=== PATIENT | female | born 1965 | race Caucasian/White ===

== ENCOUNTER 2017-11-07 14:35 | Emergency (ER) | payer MEDICARE, OTHER, SELFPAY | END 2017-11-07 17:46 | disposition home or self-care (01) | PROVIDERS: Emergency Provider Emergency Medicine; Family Provider Emergency Medicine; Visit Provider Emergency Medicine | DX: L03.116 Cellulitis of left lower limb (principal); F17.210 Nicotine dependence, cigarettes, uncomplicated; Z96.652 Presence of left artificial knee joint; Z90.710 Acquired absence of both cervix and uterus; G35 Multiple sclerosis; F41.9 Anxiety disorder, unspecified; Z79.01 Long term (current) use of anticoagulants; Z79.891 Long term (current) use of opiate analgesic; Z79.899 Other long term (current) drug therapy; Z88.8 Allergy status to other drugs, medicaments and biological substances; Z91.048 Other nonmedicinal substance allergy status | CPT/HCPCS: 73630; 80053; 83605; 85025; 87040; 93005; 96374; 96375; 99284; J2405 ==

== ENCOUNTER 2017-11-22 12:19 | Emergency (ER) | payer MEDICARE, OTHER, SELFPAY ==
[2017-11-22 12:35] VITALS: BP 131/86; PULSE 80; RESP 22; TEMP 36.7; O2SAT 98; BMI 30.9
--- NOTE | 2017-11-22 13:12 | HMH.EDGENADL ---
ED Disposition Clinical Impression: Abscess of external ear Qualifiers: Laterality: left Qualified Code(s): H60.02 - Abscess of left external ear Cellulitis of ear Qualifiers: Laterality: left Qualified Code(s): H60.12 - Cellulitis of left external ear Disposition: Xfer Short-Term Hosp Condition on Discharge: Good Referrals: Navneet Roberto MD [Primary Care Provider] - - Critical Care Critical Care Time: No Attestation: On 11/22/17, the high probability of a clinically significant, sudden or life threatening deterioration of the following system(s) required my full and direct attention, intervention and personal management. The time I documented below is in addition to time spent performing reported procedures but includes the following listed in this critical care notation. Medical Decision Making Vital Signs: 11/22/17 12:35 Temperature 98.1 F Temperature Source Oral Pulse Rate [Left Brachial] 80 Respiratory Rate 22 Blood Pressure [Left Arm] 131/86 Blood Pressure Mean [Left Arm] 101 Blood Pressure Source [Left Arm] Automatic Cuff Blood Pressure Position [Left Arm] Sitting 02 Sat by Pulse Oximetry 98 Oxygen Delivery Method Room Air - Lab Data Lab Results 11/22/17 13:50: WBC 10.2, RBC 4.65, Hgb 13.4, Hct 41.1, MCV 88.4, MCH 28.8, MCHC 32.6, RDW 13.7, Plt Count 212, MPV 8.6, Neut % (Auto) 82.4 H, Lymph % (Auto) 9.7 L, [place] % (Auto) 6.6, Eos % (Auto) 1.1, Baso % (Auto) 0.2, Neut # (Auto) 8.4 H, Lymph # (Auto) 1.0, [place] # (Auto) 0.7, Eos # (Auto) 0.1, Baso # (Auto) 0.0 11/22/17 13:50: Sodium 140, Potassium 3.2 L, Chloride 102, Carbon Dioxide 30, Anion Gap 11.2, BUN 13, Creatinine 0.60, Estimated Creat Clear 145, Estimated GFR > 60, Est GFR ( Amer) > 60, Glucose 95 11/22/17 13:50: Lactic Acid 0.6 Result diagrams: 11/22/17 13:50 11/22/17 13:50 Orders (Tests/Meds): ED MEDICATIONS Generic Name Dose Route Start Last Admin Trade Name Freq PRN Reason Stop Dose Admin Vancomycin HCl 1,750 mg/ 250 mls @ 125 mls/hr 11/22/17 14:15 11/22/17 14:29 Sodium Chloride IV 11/22/17 16:14 125 mls/hr ONCE ONE Administration Sodium Chloride 10 ml 11/22/17 13:03 Saline Flush 10ml Syringe IV 12/22/17 13:02 NEEDED PRN Maintain IV Site Discontinued Medications Generic Name Dose Route Start Last Admin Trade Name Freq PRN Reason Stop Dose Admin Hydromorphone HCl 1 mg 11/22/17 13:02 11/22/17 13:59 Dilaudid 2mg/Ml Syringe IV 11/22/17 13:03 1 mg ONCE ONE Administration Miscellaneous 1 each 11/22/17 13:02 Vancomycin Consult Request NOTAPPLIC 11/22/17 13:03 CONSULT PHARMACY ONE Ondansetron HCl 4 mg 11/22/17 13:02 11/22/17 13:59 Zofran 4mg/2ml Vial IV 11/22/17 13:03 4 mg ONCE ONE Administration - Nakul Inquiry Pt receiving controlled substance: Yes Nakul was queried for this patient: No Reason not queried -: Emergent pt cond-no time Risks and benefits of using a controlled substance: were not discussed with pt by me Medical Decision Making Narrative: 1:00 PM: Case discussed with Tremayne Rodríguez, for Dr. Roberto. She has contacted Dr. Alvarado, who is out of town. She says that she feels the patient will most likely need to be transferred for treatment and surgery, but will contact general surgery first and have them see the patient emergency department to see if they will manage the case. 1:50 PM: Dr. Blanchard's office states he will not see the patient in the emergency department, patient requires ENT treatment. Called [facility] emergency department, spoke with Dr. Lucero. They are on diversion with [address] in the emergency department. We also called to see if there were other ENT physicians that could consult on her here and all are out of town or unavailable. 2:45 PM: Discussed with Dr. Kraft, ENT airline reservationist at [facility]. He accepts the patient to the emergency department. General Adult HPI - Genera
--- NOTE | 2017-11-22 13:15 | ED_ITS ---
ED Disposition Clinical Impression: Abscess of external ear Qualifiers: Laterality: left Qualified Code(s): H60.02 - Abscess of left external ear Cellulitis of ear Qualifiers: Laterality: left Qualified Code(s): H60.12 - Cellulitis of left external ear Disposition: Xfer Short-Term Hosp Condition on Discharge: Good Referrals: Navneet Roberto MD [Primary Care Provider] - - Critical Care Critical Care Time: No Attestation: On 11/22/17, the high probability of a clinically significant, sudden or life threatening deterioration of the following system(s) required my full and direct attention, intervention and personal management. The time I documented below is in addition to time spent performing reported procedures but includes the following listed in this critical care notation. Medical Decision Making Vital Signs: 11/22/17 12:35 Temperature 98.1 F Temperature Source Oral Pulse Rate [Left Brachial] 80 Respiratory Rate 22 Blood Pressure [Left Arm] 131/86 Blood Pressure Mean [Left Arm] 101 Blood Pressure Source [Left Arm] Automatic Cuff Blood Pressure Position [Left Arm] Sitting 02 Sat by Pulse Oximetry 98 Oxygen Delivery Method Room Air - Lab Data Lab Results 11/22/17 13:50: WBC 10.2, RBC 4.65, Hgb 13.4, Hct 41.1, MCV 88.4, MCH 28.8, MCHC 32.6, RDW 13.7, Plt Count 212, MPV 8.6, Neut % (Auto) 82.4 H, Lymph % (Auto ) 9.7 L, [place] % (Auto) 6.6, Eos % (Auto) 1.1, Baso % (Auto) 0.2, Neut # (Auto) 8.4 H, Lymph # (Auto) 1.0, [place] # (Auto) 0.7, Eos # (Auto) 0.1, Baso # (Auto) 0.0 11/22/17 13:50: Sodium 140, Potassium 3.2 L, Chloride 102, Carbon Dioxide 30, Anion Gap 11.2, BUN 13, Creatinine 0.60, Estimated Creat Clear 145, Estimated GFR > 60, Est GFR ( Amer) > 60, Glucose 95 11/22/17 13:50: Lactic Acid 0.6 Result diagrams: 11/22/17 13:50 11/22/17 13:50 Orders (Tests/Meds): ED MEDICATIONS Generic Name Dose Route Start Last Admin Trade Name Freq PRN Reason Stop Dose Admin Vancomycin HCl 1,750 mg/ 250 mls @ 125 mls/hr 11/22/17 14:15 11/22/17 14:29 Sodium Chloride IV 11/22/17 16:14 125 mls/hr ONCE ONE Administration Sodium Chloride 10 ml 11/22/17 13:03 Saline Flush 10ml Syringe IV 12/22/17 13:02 NEEDED PRN Maintain IV Site Discontinued Medications Generic Name Dose Route Start Last Admin Trade Name Freq PRN Reason Stop Dose Admin Hydromorphone HCl 1 mg 11/22/17 13:02 11/22/17 13:59 Dilaudid 2mg/Ml Syringe IV 11/22/17 13:03 1 mg ONCE ONE Administration Miscellaneous 1 each 11/22/17 13:02 Vancomycin Consult Request NOTAPPLIC 11/22/17 13:03 CONSULT PHARMACY ONE Ondansetron HCl 4 mg 11/22/17 13:02 11/22/17 13:59 Zofran 4mg/2ml Vial IV 11/22/17 13:03 4 mg ONCE ONE Administration - Nakul Inquiry Pt receiving controlled substance: Yes Nakul was queried for this patient: No Reason not queried -: Emergent pt cond-no time Risks and benefits of using a controlled substance: were not discussed with pt by me Medical Decision Making Narrative: 1:00 PM: Case discussed with Tremayne Rodríguez, for Dr. Roberto. She has contacted Dr. Alvarado, who is out of town. She says that she feels the patient will most likely need to be transferred for treatment and surgery, but will contact
--- NOTE | 2017-11-22 13:42 | PC.NURSE ---
SHANE FROM DR RAMSEY'S OFFICE CALLED AND ADVISED THAT PT NEEDS TO SEE ENT AND NOT SURGERY. DR RAMSEY WILL NOT BE COMING DOWN TO ED TO ASSESS PT.
--- NOTE | 2017-11-22 13:47 | PC.NURSE ---
CALLING [facility] AT THIS TIME TO POSSIBLY ARRANGE PT TRANSFER.
--- NOTE | 2017-11-22 13:50 | PC.NURSE ---
SPEAKING WITH DR. LEDESMA IN [facility]
--- NOTE | 2017-11-22 13:51 | PC.NURSE ---
DR LEDESMA ADVISED THAT THEY ARE ON DIVERSION
--- NOTE | 2017-11-22 13:58 | PC.NURSE ---
CALLED [facility] AND DR. LILI BOYD IS SUPPOSED TO BE RETURNING OUR CALL REGARDING PT TRANSFER.
[2017-11-22 14:08] LABS: Basophils % 0.2 % (0.1-2.0); Eosinophils # 0.1 K/mm3 (0.0-0.4); Eosinophils % 1.1 % (0.1-12.0); Hematocrit 41.1 % (37.0-47.0); Hemoglobin 13.4 g/dL (12.2-16.2); Lymphocytes % 9.7 K/mm3 (10-50); Mean Corpuscular HGB Conc 32.6 g/dL (31.8-35.4); Mean Corpuscular Hemoglobin 28.8 pg (27.0-31.2); Mean Corpuscular Volume 88.4 fl (81-99); Mean Platelet Volume 8.6 fl (7.4-10.4); Monocytes # 0.7 K/mm3 (0.1-1.0); Monocytes % 6.6 % (1.7-9.3); Neutrophils # 8.4 K/mm3 (1.8-7.8); Neutrophils % 82.4 % (37.0-80.0); Platelet Count 212 K/mm3 (142-424); Red Blood Count 4.65 M/mm3 (4.20-5.40); Red Cell Distribution Width 13.7 % (11.5-17.5); White Blood Count 10.2 K/mm3 (4.8-10.8)
--- NOTE | 2017-11-22 14:08 | PC.NURSE ---
CALLED PHARMACY AND SPOKE WITH NATHANIEL REGARDING [facility] CONSULT
--- NOTE | 2017-11-22 14:14 | PC.NURSE ---
SPEAKING WITH DR. BOYD AT [facility].
[2017-11-22 14:15] LABS: Anion Gap 11.2 mEq/L (5-15); Blood Urea Nitrogen 13 mg/dL (7-18); Carbon Dioxide 30 mmol/L (21.0-32.0); Chloride 102 mmol/L (98-107); Creatinine Clearance Estimated 145 mg/ml (0-300); Estimated Glomerular Filt Rate > 60 ml/min (>60); GFR (African American) > 60 ML/MIN (>60); Glucose 95 mg/dL (74-106); Potassium 3.2 mmoL/L (3.5-5.1); Sodium 140 mmol/L (136-145)
[2017-11-22 14:24] LABS: Lactic Acid 0.6 mmol/L (0.4-2.0)
--- NOTE | 2017-11-22 14:54 | PC.NURSE ---
PT HAS BEEN ACCEPTED TO [facility] BY DR. CAR.
--- NOTE | 2017-11-22 15:58 | PC.NURSE ---
pt does not want to be transported to by em[facility] , she has her boyfriend coming to pick her up
[2017-11-22 17:01] VITALS: BP 134/92; PULSE 75; RESP 22; TEMP 37.1; O2SAT 100
== END 2017-11-22 17:09 | disposition short-term general hospital (02) ==
PROVIDERS: Emergency Provider Emergency Medicine; Family Provider Emergency Medicine; PCP Emergency Medicine
DX: H60.02 Abscess of left external ear (principal); H60.12 Cellulitis of left external ear; Z87.891 Personal history of nicotine dependence
CPT/HCPCS: 80048; 83605; 85025; 96374; 96375; 99283; J2405; J3370

== ENCOUNTER 2018-02-01 00:11 | Observation (INO) | payer MEDICARE, OTHER, SELFPAY ==
[2018-02-01] VITALS (7 sets, daily range): BP systolic 99–157; BP diastolic 57–96; PULSE 59–89; RESP 16–20; TEMP 36.4–37; O2SAT 96–99; BMI 29.9
--- NOTE | 2018-02-01 00:19 | XR_ITS ---
XR chest 2V HISTORY: ITS.REASON: chest pressure ORDERING PHYSICIAN: Navneet Roberto MD PATIENT AGE: 52 years COMPARISON: 10/31/2017 FINDINGS: The cardiomediastinal silhouette and pulmonary vascularity are within normal limits. The lungs are clear without infiltrates, suspicious nodules, or pleural effusions. There is a calcified granuloma in the right lung base posteriorly No acute bony abnormalities. IMPRESSION: Negative chest, no acute finding
[2018-02-01 00:36] LABS: Basophils % 0.3 % (0.1-2.0); Eosinophils # 0.2 K/mm3 (0.0-0.4); Eosinophils % 2.8 % (0.1-12.0); Hematocrit 42.2 % (37.0-47.0); Hemoglobin 13.9 g/dL (12.2-16.2); Lymphocytes # 1.4 K/mm3 (0.7-4.5); Lymphocytes % 24.5 K/mm3 (10-50); Mean Corpuscular Hemoglobin 29.6 pg (27.0-31.2); Mean Corpuscular Volume 89.7 fl (81-99); Mean Platelet Volume 8.4 fl (7.4-10.4); Monocytes # 0.5 K/mm3 (0.1-1.0); Monocytes % 8.7 % (1.7-9.3); Neutrophils # 3.7 K/mm3 (1.8-7.8); Neutrophils % 63.6 % (37.0-80.0); Platelet Count 227 K/mm3 (142-424); Red Blood Count 4.71 M/mm3 (4.20-5.40); Red Cell Distribution Width 13.6 % (11.5-17.5); White Blood Count 5.8 K/mm3 (4.8-10.8)
[2018-02-01 00:55] LABS: INR 1.03 (0.9-1.1); Prothrombin Time 11.1 seconds (9.4-11.8)
[2018-02-01 01:05] LABS: Activated Partial Thrombo Time 55.6 seconds (23.6-34.0)
--- NOTE | 2018-02-01 01:05 | PC.NURSE ---
critical PTT 55.[address] Roberto
[2018-02-01 01:10] LABS: Alanine Aminotransferase 42 U/L (12-78); Albumin Level 3.8 gm/dL (3.4-5.0); Albumin/Globulin Ratio 1.2 (1.1-1.8); Alkaline Phosphatase 101 U/L (46-116); Anion Gap 14.4 mEq/L (5-15); Aspartate Amino Transferase 33 U/L (15-37); Bilirubin,Total 0.2 mg/dL (0.2-1.0); Blood Urea Nitrogen 13 mg/dL (7-18); CKMB Relative Index 1.3 U/L (0-4.0); Calcium 9.1 mg/dL (8.5-10.1); Carbon Dioxide 28 mmol/L (21.0-32.0); Chloride 104 mmol/L (98-107); Creatine Kinase 48 U/L (26-192); Creatine Kinase MB 0.6 mg/ml (0.0-3.6); Creatinine Clearance Estimated 122 mL/min (0-300); Creatinine,Serum 0.71 mg/dL (0.55-1.02); Estimated Glomerular Filt Rate 87 ml/min (>60); GFR (African American) 105 ML/MIN (>60); Globulin 3.2 gm/dl (1.3-3.2); Glucose 99 mg/dL (74-106); Potassium 4.4 mmoL/L (3.5-5.1); Sodium 142 mmol/L (136-145); Troponin I < 0.02 ng/ml (0.00-0.06)
--- NOTE | 2018-02-01 01:51 | HMH.EDCP ---
ED Disposition Clinical Impression: Peripheral vascular disease Chest pain Qualifiers: Chest pain type: precordial pain Qualified Code(s): R07.2 - Precordial pain Disposition: Admitted as Observation Condition on Discharge: Good - Critical Care Critical Care Time: No Attestation: On 02/01/18, the high probability of a clinically significant, sudden or life threatening deterioration of the following system(s) required my full and direct attention, intervention and personal management. The time I documented below is in addition to time spent performing reported procedures but includes the following listed in this critical care notation. Medical Decision Making - Medical Records Medical records reviewed: Yes: I reviewed the patient's medical records. - Nakul Inquiry Pt receiving controlled substance: No Vital Signs: 02/01/18 00:12 02/01/18 01:18 02/01/18 02:20 Temperature 98.2 F 98.4 F Temperature Source Oral Oral Pulse Rate 70 Pulse Rate [Right Brachial] 81 89 Respiratory Rate 18 16 16 Blood Pressure 138/79 Blood Pressure [Right Arm] 157/85 135/96 Blood Pressure Mean [Right Arm] 109 109 Blood Pressure Source Automatic Cuff Blood Pressure Source [Right Arm] Automatic Cuff Automatic Cuff Blood Pressure Position Supine Blood Pressure Position [Right Arm] Sitting Sitting 02 Sat by Pulse Oximetry 97 97 Oxygen Delivery Method Room Air Room Air Room Air - Lab Data Lab results reviewed: Yes: I reviewed the patient's lab results. Lab Results 02/01/18 00:20: WBC 5.8, RBC 4.71, Hgb 13.9, Hct 42.2, MCV 89.7, MCH 29.6, MCHC 33.0, RDW 13.6, Plt Count 227, MPV 8.4, Neut % (Auto) 63.6, Lymph % (Auto) 24.5, [place] % (Auto) 8.7, Eos % (Auto) 2.8, Baso % (Auto) 0.3, Neut # (Auto) 3.7, Lymph # (Auto) 1.4, [place] # (Auto) 0.5, Eos # (Auto) 0.2, Baso # (Auto) 0.0 02/01/18 00:20: Sodium 142, Potassium 4.4, Chloride 104, Carbon Dioxide 28, Anion Gap 14.4, BUN 13, Creatinine 0.71, Estimated Creat Clear 122, Estimated GFR 87, Est GFR ( Amer) 105, Glucose 99, Calcium 9.1, Total Bilirubin 0.2, AST 33, ALT 42, Alkaline Phosphatase 101, Total Creatine Kinase 48, CK-MB (CK-2) 0.6, CK-MB (CK-2) Rel Index 1.3, Troponin I < 0.02, Total Protein 7.0, Albumin 3.8, Globulin 3.2, Albumin/Globulin Ratio 1.2 02/01/18 00:20: PT 11.1, INR 1.03, APTT 55.6 H* Result diagrams: 02/01/18 00:20 02/01/18 00:20 Orders (Tests/Meds): ED MEDICATIONS Discontinued Medications Generic Name Dose Route Start Last Admin Trade Name Freq PRN Reason Stop Dose Admin Aspirin 324 mg 02/01/18 02:01 02/01/18 02:05 Aspirin 81mg Chewable Tablet PO 02/01/18 02:02 324 mg ONCE ONE Administration ORDERS Category Date Time Status Chest XR 2 view (NOT portable) [XR chest 2V] Stat Exams 02/01/18 00:19 Taken ECG Request by /Jesus Stat Y 02/01/18 00:19 Ordered - Radiology Data #1 Image(s): Chest Image Reviewed: Yes I reviewed the patient's radiology image Preliminary Findings: Normal/NAD - ECG Data Tracing #1 I reviewed this ECG and interpreted as documented below: Normal Sinus Rhythm: Yes Ischemic changes: non-specific ST-T wave changes Chest Pain HPI - General Chief Complaint: Chest Pain Stated Complaint: chest pressure Time Seen by Provider: 02/01/18 01:51 Mode of Arrival: Ambulatory Source of Information: Patient, Medical Record Limitations: walks with a cane Description of Symptoms (Recalled from ER Triage Doc. by RN): reports chest heaviness, with accompanied sob and dizziness - History of Present Illness HPI narrative: pt with episodes of chest pain which is pressure over the last few days MD complaint: chest pain indicative of cardiac Onset (ago): day(s) Duration: intermittent, now resolved Activity at onset: during rest Pain location: substernal Severity: moderate Quality: tightness Pain radiation: neck Risk Factors for CAD: Family Hx of CAD Treatments prior to or on arrival
--- NOTE | 2018-02-01 02:04 | ED_ITS ---
ED Disposition Clinical Impression: Peripheral vascular disease Chest pain Qualifiers: Chest pain type: precordial pain Qualified Code(s): R07.2 - Precordial pain Disposition: Admitted as Observation Condition on Discharge: Good - Critical Care Critical Care Time: No Attestation: On 02/01/18, the high probability of a clinically significant, sudden or life threatening deterioration of the following system(s) required my full and direct attention, intervention and personal management. The time I documented below is in addition to time spent performing reported procedures but includes the following listed in this critical care notation. Medical Decision Making - Medical Records Medical records reviewed: Yes: I reviewed the patient's medical records. - Nakul Inquiry Pt receiving controlled substance: No Vital Signs: 02/01/18 00:12 02/01/18 01:18 02/01/18 02:20 Temperature 98.2 F 98.4 F Temperature Source Oral Oral Pulse Rate 70 Pulse Rate [Right Brachial] 81 89 Respiratory Rate 18 16 16 Blood Pressure 138/79 Blood Pressure [Right Arm] 157/85 135/96 Blood Pressure Mean [Right Arm] 109 109 Blood Pressure Source Automatic Cuff Blood Pressure Source [Right Arm] Automatic Cuff Automatic Cuff Blood Pressure Position Supine Blood Pressure Position [Right Arm] Sitting Sitting 02 Sat by Pulse Oximetry 97 97 Oxygen Delivery Method Room Air Room Air Room Air - Lab Data Lab results reviewed: Yes: I reviewed the patient's lab results. Lab Results 02/01/18 00:20: WBC 5.8, RBC 4.71, Hgb 13.9, Hct 42.2, MCV 89.7, MCH 29.6, MCHC 33.0, RDW 13.6, Plt Count 227, MPV 8.4, Neut % (Auto) 63.6, Lymph % (Auto) 24.5 , [place] % (Auto) 8.7, Eos % (Auto) 2.8, Baso % (Auto) 0.3, Neut # (Auto) 3.7, Lymph # (Auto) 1.4, [place] # (Auto) 0.5, Eos # (Auto) 0.2, Baso # (Auto) 0.0 02/01/18 00:20: Sodium 142, Potassium 4.4, Chloride 104, Carbon Dioxide 28, Anion Gap 14.4, BUN 13, Creatinine 0.71, Estimated Creat Clear 122, Estimated GFR 87, Est GFR ( Amer) 105, Glucose 99, Calcium 9.1, Total Bilirubin 0.2 , AST 33, ALT 42, Alkaline Phosphatase 101, Total Creatine Kinase 48, CK-MB (CK- 2) 0.6, CK-MB (CK-2) Rel Index 1.3, Troponin I < 0.02, Total Protein 7.0, Albumin 3.8, Globulin 3.2, Albumin/Globulin Ratio 1.2 02/01/18 00:20: PT 11.1, INR 1.03, APTT 55.6 H* Result diagrams: 02/01/18 00:20 02/01/18 00:20 Orders (Tests/Meds): ED MEDICATIONS Discontinued Medications Generic Name Dose Route Start Last Admin Trade Name Freq PRN Reason Stop Dose Admin Aspirin 324 mg 02/01/18 02:01 02/01/18 02:05 Aspirin 81mg Chewable Tablet PO 02/01/18 02:02 324 mg ONCE ONE Administration ORDERS Category Date Time Status Chest XR 2 view (NOT portable) [XR chest 2V] Stat Exams 02/01/18 00:19 Taken ECG Request by /Jesus Stat Y 02/01/18 00:19 Ordered - Radiology Data #1 Image(s): Chest Image Reviewed: Yes I reviewed the patient's radiology image Preliminary Findings: Normal/NAD - ECG Data Tracing #1 I reviewed this ECG and interpreted as documented below: Normal Sinus Rhythm: Yes Ischemic changes: non-specific ST-T wave changes Chest Pain HPI - General Chief Complaint: Chest Pain Stated Complaint: chest pressure Time Seen by Provider: 02/01/18 01:51
--- NOTE | 2018-02-01 06:11 | CA_ITS ---
PROCEDURE: 2-D M-mode and color Doppler study INDICATIONS FOR THE TEST: Chest pain COPD+ Heart Murmur Tobacco Smoking Palpitations Fatigue Syncope Edema Hypertension+Diabetes Mellitus Rheumatic Fever SOB GARCIA Obesity Hyperlipidemia+ Family History HD Additional History PAD PATIENT INFORMATION HEIGHT: 64 WEIGHT:182 GENDER: Female B/P:138/68 2-D/M-MODE INTERPRETATION: 2-D MEASUREMENTS OBSERVED VALUES IN CMS Right Ventricular Dimension (RVDd) 2.1 Interventricular Septum (Thickness)(IVsd) 1.4 Left Ventricular Internal Dimensions(LVIDd) 4.8 Left Ventricular Posterior Wall (Thickness)(LVPWd) 0.8 Aortic Root 3.3 Aortic Cusp Separation 2.0 Left Atrial Dimensions (LAD) 3.7 2D 1. Left atrium is mildly enlarged, left ventricle is normal size, mild concentric left ventricular hypertrophy, visually estimated ejection fraction 55% with no obvious regional wall motion abnormality. 2. The right atrium and right ventricle are normal size and contractility. 3. The aortic valve is minimally thickened and fibrosed. 4. The mitral and tricuspid valvular grossly normal. 5. The pulmonic valve is poorly visualized. 6. No significant pericardial effusion noted. DOPPLER INTERROGATION: Doppler interrogation of the aortic, mitral and tricuspid valvular presence of mild mitral and tricuspid regurgitation, tricuspid and jet velocity insufficient for calculation of the right ventricular systolic pressure, grade 1 diastolic dysfunction seen without tissue Doppler evidence of raised left atrial pressure. CONCLUSION: 1. Mildly enlarged left atrium, normal left ventricular size, mild concentric left ventricular hypertrophy, visually estimated ejection fraction 55% with no obvious regional wall motion abnormality, grade 1 diastolic dysfunction seen without tissue Doppler evidence of raised left atrial pressure. 2. Mild mitral and tricuspid regurgitation 3. No significant pericardial effusion noted.
--- NOTE | 2018-02-01 07:23 | P.CONPHA_ITS ---
[facility] Pharmacy VTE Monitoring - Patient Demographics Admission date: 02/01/18 Report Date: 02/01/18 Time: 07:23 Allergies/Adverse Reactions: Patient Allergies teriflunomide [From [facility]] Allergy (Unknown, Verified 11/22/17 13:56) ELVATED LIVER ENZYMES PAPER TAPE Allergy (Unknown, Uncoded 11/07/17 15:16) Height: 1.65 m Weight: 81.703 kg Patient Problems: Current Active Problems Chest pain (Acute) Peripheral vascular disease (Chronic) - VTE Risk Labs: VTE Related Lab Results Hgb 13.9 g/dL (12.2-16.2) 02/01/18 00:20 Hct 42.2 % (37.0-47.0) 02/01/18 00:20 Plt Count 227 K/mm3 (142-424) 02/01/18 00:20 PT 11.1 seconds (9.4-11.8) 02/01/18 00:20 INR 1.03 (0.9-1.1) 02/01/18 00:20 APTT 55.6 seconds (23.6-34.0) H* 02/01/18 00:20 BUN 13 mg/dL (7-18) 02/01/18 00:20 Creatinine 0.71 mg/dL (0.55-1.02) 02/01/18 00:20 Estimated Creat Clear 122 mL/min (0-300) 02/01/18 00:20 Was VTE Risk Assessment Performed: Yes VTE Score: 2 VTE Risk Level: Low Risk - Prophylaxis VTE Prophylaxis Ordered?: Yes Types of VTE Prophylaxis: TEDS Knee High Location of Applied Device: Bilateral Lower Extremeties - VTE Diagnosis Confirmed Treatment or plan recommended: Continue Current Treatment
--- NOTE | 2018-02-01 07:27 | PC.NURSE ---
report given to tyree montoya rn
[2018-02-01 07:44] LABS: Troponin I < 0.02 ng/ml (0.00-0.06)
--- NOTE | 2018-02-01 08:00 | HMH.CNCARD ---
History of Present Illness Consult date: 02/01/18 Requesting physician: Navneet Roberto Consult reason: chest pain Chief complaint: chest pressure Additional Medical History:: 1. Tobacco use, discontinued October 2017. Previously smoked 1.5 packs per day for more than [address] of the chest, 10/2017, showing emphysematous changes. 2. Hyperlipidemia, on statin therapy 3. History of gangrenous left great toe felt to be due to plaque rupture, 10/2017. Patient currently on Xarelto therapy. A. ABIs normal with low TBI's, 10/2017. B. CT of the abdomen, 10/2017, showed mild to moderate sclerosis of the aorta, left common iliac and iliac arteries. 4. Echocardiogram 10/2017, ejection fraction 55% with only mild MR and TR. No wall motion abnormalities. History of present illness: 52-year-old white female with several days history of non-exertion related chest pressure that lasts for about 30 seconds and then resolves. She has some associated nausea but no vomiting or diaphoresis. Symptoms are not related to eating or activity and have no associated alleviating factors. She has had occasional episodes of palpitations but denies any syncope or near syncopal symptoms. Patient was seen in the emergency department and was kept overnight for observation. Troponins have returned normal. EKG is sinus with no acute changes. Cardiology consulted for further evaluation. [facility] History Medical History: Reports:: Anxiety, Chronic Obstructive Pulmonary Disease (COPD), Gastroesophageal Reflux Disease(GERD), Hyperlipidemia, Migraine, Osteoporosis, Peripheral Artery Disease Denies:: Cancer, Diabetes Mellitus Type 1, Diabetes Mellitus Type 2, Internal Pacemaker, MRSA Other Medical History: Reports: Arthritis, Osteoporosis Laterality Cases: Left: Total Knee Replacement Other Surgeries: Yes: , Hysterectomy-Total, Other (heart cath). No: Pacemaker Amputation: No Fractures: No - *Social History Educational Level: Completed GED/General Educational Development Smoking Status: Former smoker Tobacco Type: cigarettes Smoking End Date: 11/19/2017 Alcohol Intake: never Substance Use Type: denies use Occupational Status: disabled - Psychiatric History Expresses thoughts of harming self/others: None Suicide Plan Description: No Plan Pschychiatric History:: Reports:: Anxiety *Family Hx:: Diabetes, Hypertension Meds Home Medications Medication Instructions Recorded Confirmed Type dimethyl fumarate 240 mg 240 mg PO BID 11/24/17 02/01/18 History capsule,delayed release fluoxetine 10 mg capsule 10 mg PO QDAY 11/24/17 02/01/18 History oxybutynin chloride ER 10 mg 10 mg PO QDAY 11/24/17 02/01/18 History tablet,extended release 24 hr Atorvastatin Calcium [Lipitor 80mg 80 mg PO QDAY 02/01/18 02/01/18 History Tablet] Rivaroxaban [Xarelto 15mg tablet] 15 mg PO BID 02/01/18 02/01/18 History Valacyclovir HCl [Valacyclovir] 1,000 mg PO DAILY 02/01/18 02/01/18 History buPROPion HCl [Bupropion HCl Sr] 150 mg PO BID 02/01/18 02/01/18 History Allergies Allergy/AdvReac Type Severity Reaction Status Date / Time teriflunomide [From [facility]] Allergy Unknown ELVATED Verified 11/22/17 13:56 LIVER ENZYMES PAPER TAPE Allergy Unknown Uncoded 11/07/17 15:16 Review of Systems - *Cardiovascular Reports chest pain - *Respiratory Reports shortness of breath with activity - *Gastrointestinal Denies abdominal pain, Denies loose stools - *Musculoskeletal Reports joint pain - *Neurologic Denies seizure-like activity Exam Vital signs and Labs for Last 24 Hours: Temp Pulse Resp BP Pulse Ox 97.6 F 59 L 16 99/57 99 02/01/18 07:40 02/01/18 07:40 02/01/18 07:40 02/01/18 07:40 02/01/18 07:40 Laboratory Results - last 24 hr 02/01/18 07:10: Troponin I < 0.02 I & O for Last 24 hours: Intake & Output 01/29/18 01/30/18 01/31/18 02/01/18 11:59 11:59 11:59 11:59 Weight 180 lb 1.988 oz
--- NOTE | 2018-02-01 08:01 | NM_ITS ---
CARDIOLITE SPECT MYOCARDIAL PERFUSION SCAN, REST AND STRESS: EXERCISE STRESS [facility] REVIEW QGS EF AND WALL MOTION EVALUATION: QPS - PERFUSION EVALUATION HISTORY: chest pain, shortness of breath, palpitations, hypercholesterolemia DOSE: 10.44 mCi technetium Myoview intravenously at rest followed by 30.7 mCi technetium Myoview following the intravenous ministration of 0.4 mg of Lexiscan. Resting blood pressure is 126/69. Stress blood pressure 130/67. FINDINGS: Ejection fraction is calculated to be 72%. No obvious wall motion abnormalities detected SPECT and [facility] polar map images reviewed. There is slight decrease activity within the inferior wall on the stress images becoming normal on the delayed images. This however is of questionable clinical significance and may be related to diaphragmatic attenuation. The rest images have overall increased intensity compared to the stress images. No fixed defects are evident. IMPRESSION: 1. Normal ejection fraction of 72%. 2. Slight decrease activity in the inferior wall on the stress images possibly related to diaphragmatic attenuation artifact. Mild ischemic changes not entirely excluded. Correlation with EKG findings recommended. No fixed defects apparent
--- NOTE | 2018-02-01 08:08 | P.CONS_ITS ---
History of Present Illness Consult date: 02/01/18 Requesting physician: Navneet Roberto Consult reason: chest pain Chief complaint: chest pressure Additional Medical History:: 1. Tobacco use, discontinued October 2017. Previously smoked 1.5 packs per day for more than [address] of the chest, 10/2017, showing emphysematous changes. 2. Hyperlipidemia, on statin therapy 3. History of gangrenous left great toe felt to be due to plaque rupture, 2016. Patient currently on Xarelto therapy. A. ABIs normal with low TBI's, 10/2017. B. CT of the abdomen, 10/2017, showed mild to moderate sclerosis of the aorta, left common iliac and iliac arteries. 4. Echocardiogram 10/2017, ejection fraction 55% with only mild MR and TR. No wall motion abnormalities. History of present illness: 52-year-old white female with several days history of non-exertion related chest pressure that lasts for about 30 seconds and then resolves. She has some associated nausea but no vomiting or diaphoresis. Symptoms are not related to eating or activity and have no associated alleviating factors. She has had occasional episodes of palpitations but denies any syncope or near syncopal symptoms. Patient was seen in the emergency department and was kept overnight for observation. Troponins have returned normal. EKG is sinus with no acute changes. Cardiology consulted for further evaluation. [facility] History Medical History: Reports:: Anxiety, Chronic Obstructive Pulmonary Disease (COPD) , Gastroesophageal Reflux Disease(GERD), Hyperlipidemia, Migraine, Osteoporosis , Peripheral Artery Disease Denies:: Cancer, Diabetes Mellitus Type 1, Diabetes Mellitus Type 2, Internal Pacemaker, MRSA Other Medical History: Reports: Arthritis, Osteoporosis Laterality Cases: Left: Total Knee Replacement Other Surgeries: Yes: , Hysterectomy-Total, Other (heart cath). No: Pacemaker Amputation: No Fractures: No - *Social History Educational Level: Completed GED/General Educational Development Smoking Status: Former smoker Tobacco Type: cigarettes Smoking End Date: 11/19/2017 Alcohol Intake: never Substance Use Type: denies use Occupational Status: disabled - Psychiatric History Expresses thoughts of harming self/others: None Suicide Plan Description: No Plan Pschychiatric History:: Reports:: Anxiety *Family Hx:: Diabetes, Hypertension Meds Home Medications Medication Instructions Recorded Confirmed Type dimethyl fumarate 240 mg 240 mg PO BID 11/24/17 02/01/18 History capsule,delayed release fluoxetine 10 mg capsule 10 mg PO QDAY 11/24/17 02/01/18 History oxybutynin chloride ER 10 mg 10 mg PO QDAY 11/24/17 02/01/18 History tablet,extended release 24 hr Atorvastatin Calcium [Lipitor 80mg 80 mg PO QDAY 02/01/18 02/01/18 History Tablet] Rivaroxaban [Xarelto 15mg tablet] 15 mg PO BID 02/01/18 02/01/18 History Valacyclovir HCl [Valacyclovir] 1,000 mg PO DAILY 02/01/18 02/01/18 History buPROPion HCl [Bupropion HCl Sr] 150 mg PO BID 02/01/18 02/01/18 History Allergies Allergy/AdvReac Type Severity Reaction Status Date / Time teriflunomide [From [facility]] Allergy Unknown ELVATED Verified 11/22/17 13:56 LIVER ENZYMES PAPER TAPE Allergy Unknown Uncoded 11/07/17 15:16 Review of Systems - *Cardiovascular Reports chest pain - *Respiratory Reports shortness of breath with activity - *Gastrointestinal Denies abdominal pain, Denies loose stools
--- NOTE | 2018-02-01 10:38 | PC.NURSE ---
PT IS OFF THE FLOOR AT THIS TIME FOR STRESS TEST.
--- NOTE | 2018-02-01 11:11 | HMH.ITSHM ---
bupropion lipitor valacyclovir xarelto fluoxetine atorvastatin
--- NOTE | 2018-02-01 16:40 | HMH.HPDC ---
General - General Admission date: 02/01/18 Discharge date: 02/01/18 *Admission Date: 02/01/18 *Chief complaint: chest pressure *History of present illness: 52-year-old white female with several days history of non-exertion related chest pressure that lasts for about 30 seconds and then resolves. She has some associated nausea but no vomiting or diaphoresis. Symptoms are not related to eating or activity and have no associated alleviating factors. She has had occasional episodes of palpitations but denies any syncope or near syncopal symptoms. Patient was seen in the emergency department and was kept overnight for observation. Troponins have returned normal. EKG is sinus with no acute changes. Cardiology consulted for further evaluation. [facility] History I have reviewed the patient's past medical history: Yes Medical History: Reports:: Anxiety, Chronic Obstructive Pulmonary Disease (COPD), Gastroesophageal Reflux Disease(GERD), Hyperlipidemia, Migraine, Osteoporosis, Peripheral Artery Disease Denies:: Cancer, Diabetes Mellitus Type 1, Diabetes Mellitus Type 2, Internal Pacemaker, MRSA Other Medical History: Reports: Arthritis, Osteoporosis Laterality Cases: Left: Total Knee Replacement Other Surgeries: Yes: , Hysterectomy-Total, Other (heart cath). No: Pacemaker Amputation: No Fractures: No - *Social History Educational Level: Completed GED/General Educational Development Smoking Status: Former smoker Tobacco Type: cigarettes Smoking End Date: 11/19/2017 Alcohol Intake: never Substance Use Type: denies use Occupational Status: disabled - Psychiatric History Expresses thoughts of harming self/others: None Suicide Plan Description: No Plan Pschychiatric History:: Reports:: Anxiety *Family Hx:: Diabetes, Hypertension Review of Systems - Review of Systems Review of systems:: unable to obtain, other, pertinent systems reviewed and negative unless documented below - Constitutional Denies malaise - Eyes Denies change in vision - ENT Denies change in voice - *Cardiovascular Reports chest pain at rest, Reports shortness of breath, Denies foot swelling - *Respiratory Denies wheezing - *Genitourinary Denies painful intercourse - *Musculoskeletal Denies decreased muscle mass - Integumentary/Breasts Denies change in hair - *Neurologic Denies abnormal movements, Denies seizure-like activity - Endocrine Denies flushing - Hematologic/Lymphatic Denies enlarged lymph nodes - Allergic/Immunologic Denies lip swelling Exam Vital signs and Labs for Last 24 Hours: Temp Pulse Resp BP Pulse Ox 98.6 F 69 16 141/78 96 02/01/18 16:00 02/01/18 16:00 02/01/18 16:00 02/01/18 16:00 02/01/18 16:00 Laboratory Results - last 24 hr 02/01/18 07:10: Troponin I < 0.02 I & O for Last 24 hours: Intake & Output 01/30/18 01/31/18 02/01/18 02/02/18 11:59 11:59 11:59 11:59 Weight 180 lb 1.988 oz - Constitutional no acute distress - *Routine HEENT Exam Head: Present: normocephalic Eye: Present: PERRL ENT: Present: mucous membranes moist - *Routine Neck Exam Present: supple, full ROM - *Routine Respiratory Exam Present: CTA bilaterally - *Routine Cardiovascular Exam Present: RRR. Absent: murmur - *Routine Extremities Exam Present: full ROM - *Routine Neurological Exam Present: alert, oriented X3, CN II-XII intact Hospital Course Hospital Course: cardiology consult stress test:IMPRESSION: 1. Normal ejection fraction of 72%. 2. Slight decrease activity in the inferior wall on the stress images possibly related to diaphragmatic attenuation artifact. Mild ischemic changes not entirely excluded. Correlation with EKG findings recommended. No fixed defects apparent ok to dc per ema, follow up with ema in 2 weeks Results Labs on day of discharge: Labs from last 24 hours 02/01/18 07:10 Troponin I < 0.02 Discharge Medications Discharge Med
== END 2018-02-01 17:55 | disposition home or self-care (01) ==
LOC: ER 01:58 → 2ND 02:37
PROVIDERS: Admitting Provider Emergency Medicine; Emergency Provider Emergency Medicine; Family Provider Emergency Medicine; PCP Emergency Medicine; Visit Provider Emergency Medicine
DX: R07.9 Chest pain, unspecified (principal); J44.9 Chronic obstructive pulmonary disease, unspecified; Z87.891 Personal history of nicotine dependence; E78.5 Hyperlipidemia, unspecified; I11.9 Hypertensive heart disease without heart failure; I73.9 Peripheral vascular disease, unspecified; I77.1 Stricture of artery
CPT/HCPCS: 36415; 71046; 78452; 80053; 82550; 82553; 84484; 85025; 85610; 85730; 93005; 93017; 93225; 93226; 93306; 99283; A9502; G0378; J2785

== ENCOUNTER → 2018-04-23 08:07 | Outpatient (POV) | payer MEDICARE, OTHER, SELFPAY | PROVIDERS: Family Provider Emergency Medicine; PCP Emergency Medicine; Visit Provider Nurse Practitioner Acute Care | DX: Z00.00 Encounter for general adult medical examination without abnormal findings (principal) ==

== ENCOUNTER 2018-05-01 09:50 | Outpatient (CLI) | payer MEDICARE, OTHER, SELFPAY ==
[2018-05-01 09:50] VITALS: BMI 30.7
[2018-05-01 10:20] LABS: Albumin Level 3.3 gm/dL (3.4-5.0); Calcium 8.8 mg/dL (8.5-10.1); Creatinine Clearance Estimated 130 mL/min (0-300); Creatinine,Serum 0.68 mg/dL (0.55-1.02); Estimated Glomerular Filt Rate 91 ml/min (>60); GFR (African American) 110 ML/MIN (>60)
[2018-05-01 10:50] VITALS: BP 119/69; PULSE 66; RESP 20; TEMP 36.7; O2SAT 96
[2018-05-01 11:20] VITALS: BP 114/56; PULSE 68; RESP 20; TEMP 36.9; O2SAT 96
== END 2018-05-01 11:20 | disposition home or self-care (01) ==
LOC: INF 09:54
PROVIDERS: Family Provider Emergency Medicine; PCP Emergency Medicine; Visit Provider Nurse Practitioner Family
DX: M81.8 Other osteoporosis without current pathological fracture (principal)
CPT/HCPCS: 82040; 82310; 82565; 96365; J3489

== ENCOUNTER → 2018-12-05 10:21 | Outpatient (CLI) | payer MEDICARE, OTHER, SELFPAY ==
--- NOTE | 2018-12-05 10:26 | XR_ITS ---
XR chest 2V HISTORY: Smoker, heart disease ITS.REASON: tobacco use ORDERING PHYSICIAN: Ghassan Santos MD PATIENT AGE: 53 years COMPARISON: [id number] FINDINGS: Normal heart size. Coronary artery stent is present. No lobar consolidation or collapse. There is evidence of old granulomatous disease. No acute bony anomalies. IMPRESSION: No acute finding
[2018-12-05 13:36] LABS: Alanine Aminotransferase 21 U/L (12-78); Albumin Level 3.5 gm/dL (3.4-5.0); Alkaline Phosphatase 68 U/L (46-116); Aspartate Amino Transferase 10 U/L (15-37); Bilirubin,Direct 0.1 mg/dL (0.0-0.2); Bilirubin,Indirect 0.2 mg/dL (0.0-0.9); Bilirubin,Total 0.3 mg/dL (0.2-1.0); Chol/HDL Ratio 4.5 (1-3.5); Cholesterol 250 mg/dL (140-200); HDL Cholesterol 56 mg/dL (29-89); LDL Cholesterol 163 mg/dL (0-130); Total Protein,Serum 6.9 gm/dL (6.4-8.2); Triglycerides 154 mg/dL (30-200); VLDL Cholesterol 31 mg/dL (0-40)
== END ==
PROVIDERS: PCP Family Medicine; Visit Provider Internal Medicine
DX: F17.200 Nicotine dependence, unspecified, uncomplicated; I11.9 Hypertensive heart disease without heart failure; I25.10 Atherosclerotic heart disease of native coronary artery without angina pectoris; I73.9 Peripheral vascular disease, unspecified; E78.49 Other hyperlipidemia
CPT/HCPCS: 36415; 71046; 80061; 80076

== ENCOUNTER 2019-01-10 10:46 | Outpatient (RCR) | payer MEDICARE, OTHER, SELFPAY | END 2019-01-10 11:00 | disposition home or self-care (01) | LOC: PT 10:46 | PROVIDERS: Visit Provider Orthopaedic Surgery | DX: S82.831A Other fracture of upper and lower end of right fibula, initial encounter for closed fracture (principal) | CPT/HCPCS: 97760 ==

== ENCOUNTER → 2020-01-22 06:53 | Outpatient (CLI) | payer MEDICARE, OTHER, SELFPAY ==
--- NOTE | 2020-01-22 | CA_ITS ---
APPROVED REPORT Exam: Pharmacologic Technologist: Patricia Ferrer Ht: 5 ft 4 in Wt: 180 lbs BSA: 1.87 m2 HR: 54 bpm BP: 104/53 mmHg Indications: Chest pain Medical History Medications: Amlodipine,,,,, Furosemide (LASIX),,,,, Atorvastatin,,,,, CloPIdogrel,,,,, BisOPROLOL,,,,, Fluoxetine,,,,, OxYbutynin,,,,, SpirOnolactone,,,,, RIvaROXABAN,,,,, DimETHYL,,,,, Stress Test Details Test: LEXISCAN HR Resting HR: 55 bpm Max Heart Rate (APMHR): 168 bpm Max HR Achieved: 84 bpm Target HR (85% APMHR): 142 bpm % of APMHR: 50 Recovery HR: 67 bpm BP Resting BP: 104.0/53.0 mmHg Max BP: 132.0/66.0 mmHg Recovery BP: 114.0/60.0 mmHg ECG Clinical Exercise duration: 04:01 min Highest Stage Achieved: Exercise capacity: 1.0 METs Stress ECG Conclusion Resting ECG: Sinus bradycardia, otherwise normal Symptoms: Shortness of air, nausea, malaise, headache. No chest pain. Arrhythmias/Ectopy: Occasional PAC ST-T Changes: No significant changes. Conclusion: Unremarkable Lexiscan stress. Myoview images reported separately. Test Summary RECOVERY 04:00 . . 58 . 132/ 66 . . REST 04:22 . . 55 . 104/ 53 . . Stage 1 . . . . . . . Myoview Injected Stage 1 01:00 . . 82 . . . . Stage 2 . . . . . . . Shortness of Breath Stage 2 01:00 . . 82 . 125/ 68 . . Stage 3 01:00 . . 74 . 119/ 66 . . Stage 4 01:00 . . 74 . 127/ 72 . . Stage 4 01:01 . . 74 . 127/ 72 . Stop exercise at 04:01 RECOVERY 01:00 . . 71 . . . . RECOVERY 02:00 . . 70 . 132/ 66 . . RECOVERY 03:00 . . 68 . 132/ 66 . . RECOVERY 04:00 . . 58 . 132/ 66 . . RECOVERY 05:00 . . 67 . 132/ 66 . . RECOVERY 06:00 . . 60 . 114/ 60 . . RECOVERY 06:17 . . 56 . 114/ 60 . . Electronically signed by : Ghassan Santos, 01/23/2020 09:15:18
--- NOTE | 2020-01-22 06:55 | NM_ITS ---
APPROVED REPORT Exam: Nuclear Stress Test Indication: Chest pain, SOB, High cholesterol, Tobacco use, CAD Patient Location: Outpatient Stress Tech: Patricialu CUENCA Tech:Sheebaamy Begum, ARRT, RT (R)(N) Ht: 5 ft 4 in Wt: 180 lbs Bra Size: 36B HR: 54 bpm BP: 104/53 mmHg BSA: 1.87 m2 BMI: 30.8 History: Chest pain, SOB, High cholesterol, Tobacco use, CAD Procedure: Patient received a 0.4 mg of intravenous Lexiscan, resting heart rate 54 bpm, resting blood pressure 104/53 mmHg, with Lexiscan maximum heart rate achived was 82 bpm which is % of the maximum predicted heart rate and blood pressure was 125/68 mmHg. With Lexiscan, patient denied any complaint of chest pain. Cardiac Stress and Resting SPECT Images: Cardiac Stress and Resting SPECT images were obtained using technetium 99m Myoview 32.4 mCi stress and 10.09 mCi at rest. EF 64% Fixed defect in anterior wall with small area of reversibility suggesting infarction with minimal redistribution Probable attenuation inferior wall Conclusion: Abnormal. EF 64% Fixed defect in anterior wall with small area of reversibility suggesting infarction with minimal redistribution Probable diphragmatic attenuation inferior wall Electronically signed by : Ryan Benedict MD 01/24/2020 15:36:19
--- NOTE | 2020-01-22 08:20 | HMH.ITSHM ---
Current Home Medications as stated by this patient Anabel Hardy or sales representative printing paper. []SPIRONOLACTONE RIVAROXABAN OXYBUTYNIN FUROSEMIDE FLUOXETINE DIMETHYL CLOPIDOGREL BISOPROLOL ATORVASTATIN AMLIDIPINE VALACYCLOVIR IBUPROFEN
== END ==
PROVIDERS: PCP Family Medicine; Visit Provider Urology
DX: E78.5 Hyperlipidemia, unspecified (principal); I11.9 Hypertensive heart disease without heart failure; I20.9 Angina pectoris, unspecified; I73.9 Peripheral vascular disease, unspecified; I74.9 Embolism and thrombosis of unspecified artery; R07.9 Chest pain, unspecified
CPT/HCPCS: 78452; 93017; 93306; A9502; J2785

== ENCOUNTER 2020-03-09 17:25 | Emergency (ER) | payer MEDICARE, OTHER, SELFPAY ==
[2020-03-09 17:39] VITALS: BP 132/82; PULSE 72; RESP 20; TEMP 36.6; O2SAT 98; BMI 31.7
--- NOTE | 2020-03-09 17:42 | HMH.EDUTC ---
[facility] [place] Disposition Clinical Impression: Otitis media Qualifiers: Otitis media type: suppurative Chronicity: acute Laterality: left Recurrence: non-recurrent Spontaneous tympanic membrane rupture: without spontaneous rupture Qualified Code(s): H66.002 - Acute suppurative otitis media without spontaneous rupture of ear drum, left ear Disposition: Home, Self-Care Condition on Discharge: Good Instructions: Middle Ear Infection Additional Instructions: Drink plenty of fluids. Take tylenol or ibuprofen for pain or fever. Take the medications as directed. Follow up with your regular doctor. GO TO THE ER FOR ANY WORSENING SYMPTOMS Prescriptions: Amoxicillin/Potassium Clav [Augmentin 875-125 Tablet] 1 tab PO Q12H 10 Days #20 tab Transmission Status: Received by [facility] Neomycin/Polymyxin B Sulf/Hc [Nguxlypu-Igxsodjbv-XQ Otic Susp 10mL] 3 drops EAR-RIGHT TID 7 Days #1 bottle Transmission Status: Received by [facility] Referrals: Sarah Parker [Primary Care Provider] - Time of Disposition: 17:53 Medical Decision Making - Medical Records Medical records reviewed: No: I reviewed the patient's medical records. - Nakul Inquiry Pt receiving controlled substance: No Vital Signs: 03/09/20 17:39 03/09/20 17:56 Temperature 97.9 F 97.9 F Temperature Source Oral Oral Pulse Rate 72 Pulse Rate [Right Brachial] 72 Respiratory Rate 20 20 Blood Pressure 132/82 Blood Pressure [Right Arm] 132/82 Blood Pressure Mean [Right Arm] 98 Blood Pressure Source Automatic Cuff Blood Pressure Source [Right Arm] Automatic Cuff Blood Pressure Position Sitting Blood Pressure Position [Right Arm] Sitting 02 Sat by Pulse Oximetry 98 Oxygen Delivery Method Room Air Room Air [facility] [place] HPI - General Stated complaint: Ear pain L ear Time Seen by Provider: 03/09/20 17:42 - History of Present Illness Provider Complaint: She c/o left ear pain since yesterday. She believes she has an ear infection. She denies any fever, chills, sore throat and cough. - Related Data Home Medications Medication Instructions Recorded Confirmed dimethyl fumarate 240 mg 240 mg PO BID 11/24/17 01/13/20 capsule,delayed release oxybutynin chloride 10 mg 10 mg PO BID 11/24/17 01/13/20 tablet,extended release 24 hr Valacyclovir HCl [Valacyclovir] 1,000 mg PO DAILY 02/01/18 01/13/20 fluoxetine 10 mg capsule 40 mg PO QAM cap 01/13/20 01/13/20 Previous Rx's Medication Instructions Recorded furosemide 40 mg tablet 40 mg PO DAILY PRN #30 tab 12/05/18 spironolactone 25 mg tablet 25 mg PO DAILY #30 tab 12/05/18 Ibuprofen [Ibuprofen 600mg 600 mg PO Q6HP PRN #30 tab 01/06/19 Tablet] clopidogrel 75 mg tablet 75 mg PO DAILY #30 tab 07/23/19 rivaroxaban 20 mg tablet 20 mg PO .with supper #30 tab 08/26/19 bisoprolol fumarate 5 mg tablet 2.5 mg PO DAILY #30 tab 12/26/19 amlodipine 2.5 mg tablet 2.5 mg PO DAILY #30 tab 01/06/20 atorvastatin 80 mg tablet 80 mg PO DAILY #90 tab 02/06/20 Amoxicillin/Potassium Clav 1 tab PO Q12H 10 Days #20 tab 03/09/20 [Augmentin 875-125 Tablet] Neomycin/Polymyxin B Sulf/Hc 3 drops EAR-RIGHT TID 7 Days #1 03/09/20 [Ybvldzwy-Hewfhepxt-ZM Otic Susp bottle 10mL] Allergies Allergy/AdvReac Type Severity Reaction Status Date / Time teriflunomide [From [facility]] Allergy Unknown ELVATED Verified 01/13/20 11:21 LIVER ENZYMES PAPER TAPE Allergy Unknown Uncoded 01/13/20 11:21 [facility] History - Hepatitis A Screen Attestation statement:: This patient has been screened for Hepatitis A risk factors. I have reviewed the patient's past medical history: Yes Medical History: Reports:: Anxiety, Chronic Obstructive Pulmonary Disease (COPD), Gastroesophageal Reflux Disease(GERD), Hyperlipidemia, Migraine, Osteoporosis, Peripheral Artery Disease Denies:: Cancer, Diabetes Mellitus Type 1, Diabetes Mellitus Type 2, Internal Pacemaker, Lung Disease, MRSA, Seizures Other Medical His
[2020-03-09 17:56] VITALS: BP 132/82; PULSE 72; RESP 20; TEMP 36.6; O2SAT 98
== END 2020-03-09 18:00 | disposition home or self-care (01) ==
PROVIDERS: Emergency Provider Nurse Practitioner Family; PCP Family Medicine
DX: H66.002 Acute suppurative otitis media without spontaneous rupture of ear drum, left ear (principal); F41.9 Anxiety disorder, unspecified; K21.9 Gastro-esophageal reflux disease without esophagitis; E78.5 Hyperlipidemia, unspecified; M81.0 Age-related osteoporosis without current pathological fracture; F17.210 Nicotine dependence, cigarettes, uncomplicated; I73.9 Peripheral vascular disease, unspecified
CPT/HCPCS: G0463; 99201

== ENCOUNTER 2020-07-01 08:05 | Day surgery (SDC) | payer MEDICARE, OTHER, SELFPAY ==
[2020-07-01] VITALS (18 sets, daily range): BP systolic 84–109; BP diastolic 47–73; PULSE 50–68; RESP 16–18; TEMP 36.6; O2SAT 92–97; BMI 33.5
--- NOTE | 2020-07-01 | IR_ITS ---
APPROVED REPORT Patient Location: Outpatient Painting Supervisor: ERIKA Bermudez RT (R) PROCEDURES Left heart catheterization Left ventriculogram Selective coronary angiogram INDICATION Known coronary artery disease, Classic angina pectoris, Abnormal Myoview Informed consent was obtained prior to the procedure. COMPLICATIONS None Estimated Blood Loss: Less than 10 mls TECHNIQUE One percent lidocaine was used to anesthetize the right groin. The right femoral artery was accessed via the Seldinger technique. A 4-Chinese sheath was placed in the right femoral artery. The JL-4 and JR-4 catheter was also used to perform left heart catheterization left ventriculogram and selective coronary angiogram. At the end of the procedure the patient was transferred to the post-op holding area in stable condition for arterial sheath removal. ANGIOGRAPHIC RESULTS The left main artery Normal The left anterior descending artery Normal The circumflex artery Is codominant. The distal vessels are small in caliber and consistent with small vessel vasculopathy. There is no identifiable stenosis in the main artery of the circumflex The right coronary artery Codominant and has a stent in the proximal segment which is widely patent free of in-stent restenosis. Distally there is transitioning in which the stent is larger than the big sandy vessel. There may be a 30% stenosis immediately distal to the stent which transitions into the big sandy vessel. Distally in the right coronary artery the microvascular vessels have poor blanching and are consistent with small vessel vasculopathy The [place] ventriculogram reveals Slightly hyperdynamic at 70 to 75% The left ventricular end-diastolic pressure Severely elevated at 30 mmHg IMPRESSION Patent stent as described above with angiographically mild to moderate transitioning where larger stent transitions into a smaller big sandy vessel Slightly hyperdynamic ventricle consistent with diastolic dysfunction Severely elevated LVEDP consistent with diastolic dysfunction which is almost certainly the etiology for patient's classic angina PLAN 1. Patient should be diuresed with loop diuretics and her diastolic dysfunction treated. I strongly suspect this is the etiology of her angina and if appropriately treated should significantly improve 2. Continue risk factor modification 3. If after treating diastolic dysfunction patient continues to experience angina pectoris I would consider bringing her back to the [facility] and performing FFR. Currently FFR is not appropriate if the LVEDP exceeds 25 Electronically signed by : Ghassan Santos, 07/01/2020 10:34:25
[2020-07-01 08:51] LABS: Basophils % 0.2 % (0.1-2.0); Eosinophils # 0.1 K/mm3 (0.0-0.4); Eosinophils % 1.1 % (0.1-12.0); Hematocrit 41.6 % (37.0-47.0); Hemoglobin 14.3 g/dL (12.2-16.2); Lymphocytes # 1.8 K/mm3 (0.7-4.5); Lymphocytes % 20.6 % (10-50); Mean Corpuscular HGB Conc 34.4 g/dL (31.8-35.4); Mean Corpuscular Hemoglobin 29.5 pg (27.0-31.2); Mean Corpuscular Volume 85.8 fl (81-99); Mean Platelet Volume 9.2 fl (7.4-10.4); Monocytes # 0.6 K/mm3 (0.1-1.0); Monocytes % 6.3 % (1.7-9.3); Neutrophils # 6.4 K/mm3 (1.8-7.8); Neutrophils % 71.8 % (37.0-80.0); Platelet Count 225 K/mm3 (142-424); Red Blood Count 4.85 M/mm3 (4.20-5.40); Red Cell Distribution Width 14.5 % (11.5-17.5); White Blood Count 8.9 K/mm3 (4.8-10.8)
[2020-07-01 08:55] LABS: Chloride 107 mmol/L (98-107)
[2020-07-01 08:56] LABS: Potassium 4.1 mmoL/L (3.5-5.1); Sodium 140 mmol/L (136-145)
[2020-07-01 08:59] LABS: Anion Gap 13.1 mEq/L (5-15); Blood Urea Nitrogen 13 mg/dl (7-17); Calcium 9.4 mg/dl (8.4-10.2); Carbon Dioxide 24 mmol/L (22.0-30.0); Creatinine Clearance Estimated 130 mL/min (50-200); Estimated Glomerular Filt Rate 88 ml/min (>60); GFR (African American) 106 ML/MIN (>60); Glucose 96 mg/dl (74-100)
[2020-07-01 09:11] LABS: Coronavirus 19 IgG Antibody Negative (Negative); Coronavirus 19 IgM Antibody Negative (Negative)
== END 2020-07-01 14:01 | disposition home or self-care (01) ==
LOC: CATHLAB 08:07
PROVIDERS: PCP Family Medicine; Visit Provider Internal Medicine
DX: R94.39 Abnormal result of other cardiovascular function study (principal); I25.118 Atherosclerotic heart disease of native coronary artery with other forms of angina pectoris; I11.9 Hypertensive heart disease without heart failure; J44.9 Chronic obstructive pulmonary disease, unspecified; Z72.0 Tobacco use; Z88.0 Allergy status to penicillin; Z79.899 Other long term (current) drug therapy
CPT/HCPCS: 80048; 85025; 86328; 93458; 99152; C1725; C1769; J1644; Q9967

== ENCOUNTER → 2020-07-22 15:01 | Outpatient (CLI) | payer MEDICARE, OTHER, SELFPAY ==
[2020-07-22 16:23] LABS: Blood Urea Nitrogen 20 mg/dl (7-17); Calcium 9.2 mg/dl (8.4-10.2); Carbon Dioxide 27 mmol/L (22.0-30.0); Chloride 102 mmol/L (98-107); Estimated Glomerular Filt Rate 88 ml/min (>60); GFR (African American) 106 ML/MIN (>60); Glucose 95 mg/dl (74-100); Sodium 139 mmol/L (136-145)
== END ==
PROVIDERS: Visit Provider Physician Assistant
DX: E78.5 Hyperlipidemia, unspecified (principal); I11.9 Hypertensive heart disease without heart failure; I20.9 Angina pectoris, unspecified; I73.9 Peripheral vascular disease, unspecified; I74.9 Embolism and thrombosis of unspecified artery
CPT/HCPCS: 36415; 80048

== ENCOUNTER → 2021-01-26 14:53 | Outpatient (CLI) | payer MEDICARE, OTHER, SELFPAY ==
[2021-01-26 15:35] LABS: Basophils % 0.3 % (0.1-2.0); Eosinophils # 0.1 K/mm3 (0.0-0.4); Hematocrit 46.7 % (37.0-47.0); Hemoglobin 14.9 g/dL (12.2-16.2); Lymphocytes # 1.5 K/mm3 (0.7-4.5); Lymphocytes % 15.6 % (10-50); Mean Corpuscular HGB Conc 31.8 g/dL (31.8-35.4); Mean Corpuscular Hemoglobin 28.3 pg (27.0-31.2); Mean Corpuscular Volume 88.9 fl (81-99); Mean Platelet Volume 9.1 fl (7.4-10.4); Monocytes # 0.6 K/mm3 (0.1-1.0); Monocytes % 6.7 % (1.7-9.3); Neutrophils # 7.1 K/mm3 (1.8-7.8); Neutrophils % 76.3 % (37.0-80.0); Platelet Count 254 K/mm3 (142-424); Red Blood Count 5.25 M/mm3 (4.20-5.40); Red Cell Distribution Width 13.9 % (11.5-17.5); White Blood Count 9.3 K/mm3 (4.8-10.8)
[2021-01-26 16:32] LABS: Chloride 105 mmol/L (98-107); Potassium 4.5 mmoL/L (3.5-5.1); Sodium 141 mmol/L (136-145)
[2021-01-26 16:34] LABS: Blood Urea Nitrogen 16 mg/dl (7-17); Estimated Glomerular Filt Rate 88 ml/min (>60); GFR (African American) 106 ML/MIN (>60)
[2021-01-26 16:35] LABS: Alanine Aminotransferase 25 U/L (12-78); Albumin Level 4.5 g/dl (3.5-5.0); Albumin/Globulin Ratio 1.6 (1.1-1.8); Alkaline Phosphatase 83 U/L (38-126); Anion Gap 12.5 mEq/L (5-15); Aspartate Amino Transferase 26 U/L (14-36); Bilirubin,Total 0.7 mg/dl (0.2-1.3); Calcium 9.9 mg/dl (8.4-10.2); Carbon Dioxide 28 mmol/L (22.0-30.0); Globulin 2.9 g/dL (1.3-3.2); Glucose 83 mg/dl (74-100); Total Protein,Serum 7.4 g/dl (6.3-8.2)
== END ==
PROVIDERS: Visit Provider Psychiatry & Neurology Sleep Medicine
DX: G35 Multiple sclerosis (principal)
CPT/HCPCS: 36415; 80053; 85025

== ENCOUNTER 2021-04-06 17:14 | Emergency (ER) | payer MEDICARE, OTHER, SELFPAY ==
[2021-04-06 17:28] VITALS: BP 148/76; PULSE 71; RESP 16; TEMP 36.8; O2SAT 96; BMI 29.9
--- NOTE | 2021-04-06 17:32 | XR_ITS ---
PROCEDURE INFORMATION: Exam: XR Lumbosacral Spine Exam date and time: 04/06/2021 5:32 PM Age: 56 years old Clinical indication: Patient HX: Low back pain after working in yard yesterday TECHNIQUE: Imaging protocol: XR of the lumbosacral spine. Views: 2 or 3 views. COMPARISON: No relevant prior studies available. FINDINGS: Bones/joints: The lumbar spine demonstrates mild degenerative changes at multiple levels. There is no evidence of acute fracture. The facet joints demonstrate mild degenerative hypertrophy and sclerosis. Soft tissues: Unremarkable. Vasculature: The vasculature demonstrates diffuse mild atherosclerotic calcification. IMPRESSION: 1. The lumbar spine demonstrates mild degenerative changes at multiple levels. 2. No evidence of acute fracture.
--- NOTE | 2021-04-06 18:19 | HMH.EDUTC ---
[facility] [place] Disposition Clinical Impression: Low back pain with radiation Low back strain Qualifiers: Encounter type: initial encounter Qualified Code(s): S39.012A - Strain of muscle, fascia and tendon of lower back, initial encounter Sciatica Qualifiers: Laterality: right Qualified Code(s): M54.31 - Sciatica, right side Disposition: Home, Self-Care Condition on Discharge: Good Instructions: Low Back Pain, DI for Low Back Pain Additional Instructions: Go home and rest. It would be best if you rested tomorrow too. No heavy lifting. No twisting. Take the oral medications as directed. The muscle relaxer (cyclobenzaprine/flexeril) will make you drowsy, so don't drive or operate heavy machinery after taking it. Don't start the oral steroids (medrol dose pack) until tomorrow, since you had the shots in here today. Follow up with your regular doctor. GO TO THE ER FOR ANY WORSENING SYMPTOMS OR CONCERN, ESPECIALLY BOWEL OR BLADDER ISSUES, SADDLE AREA NUMBNESS, FEVER, ETC Prescriptions: Cyclobenzaprine HCl [Cyclobenzaprine 10mg Tab] 10 mg PO BIDP PRN #20 tab PRN Reason: Muscle Spasm Transmission Status: Received by [facility] methylPREDNISolone [Medrol] 4 mg PO DIRECTED 6 Days #21 tab.ds.pk Transmission Status: Received by [facility] Referrals: Chaya Skelton APRN [Primary Care Provider] - Time of Disposition: 18:34 Medical Decision Making - Medical Records Medical records reviewed: No: I reviewed the patient's medical records. - Nakul Inquiry Pt receiving controlled substance: No Vital Signs: 04/06/21 17:28 04/06/21 18:36 Temperature 98.3 F 98 F Temperature Source Oral Pulse Rate 72 Pulse Rate [Right] 71 Respiratory Rate 16 16 Blood Pressure 139/74 Blood Pressure [Right Arm] 148/76 H Blood Pressure Mean [Right Arm] 100 Blood Pressure Source [Right Arm] Automatic Cuff Blood Pressure Position [Right Arm] Sitting 02 Sat by Pulse Oximetry 96 Oxygen Delivery Method Room Air Orders (Tests/Meds): ED MEDICATIONS Discontinued Medications Generic Name Dose Route Start Last Admin Trade Name Freq PRN Reason Stop Dose Admin Ketorolac Tromethamine 60 mg 04/06/21 18:27 04/06/21 18:36 Ketorolac 60mg/2ml Vial IM 04/06/21 18:28 60 mg ONCE ONE Administration Methylprednisolone Sodium Succinate 125 mg 04/06/21 18:27 04/06/21 18:36 Methylprednisolone Sod Succ 125mg Vial IM 04/06/21 18:28 125 mg ONCE ONE Administration [facility] [place] HPI - General Stated complaint: AO 04/05@1800 injured Back Time Seen by Provider: 04/06/21 18:19 Mode of Arrival: Ambulatory Source of Information: Patient Limitations: No Limitations Description of Symptoms (Recalled from Triage Doc. by RN): pt was bent over pulling up wire that was stuck underground. pt is having lower back pain that is worse in the right side. the pain is 10/10, sharp and radiates down her leg. HEENT Symptoms (Recalled from RN notes): No Resp Symptoms (Recalled from RN notes): No Skin Symptoms (Recalled from RN notes): No MS Symptoms (Recalled from RN notes): Yes (Lower back pain that radiates down her R leg) Functional Status (Recalled from RN notes): na - History of Present Illness Provider Complaint: She states that she has had right sided low back pain. Her symptoms started after she pulled on a wire to pull it out of the ground. She has a history of low back pain. She denies any fall or accidents recently. She denies any bowel or bladder issues. She denies any saddle area numbness. - Related Data Home Medications Medication Instructions Recorded Confirmed dimethyl fumarate 240 mg 240 mg PO BID 11/24/17 08/10/20 capsule,delayed release oxybutynin chloride 10 mg 10 mg PO BID 11/24/17 08/10/20 tablet,extended release 24 hr Valacyclovir HCl [Valacyclovir] 1,000 mg PO DAILY 02/01/18 08/10/20 fluoxetine 10 mg capsule 40 mg PO QAM cap 01/13/20 08/10/20 famotidine 20 mg tablet 20 mg PO BID t
[2021-04-06 18:36] VITALS: BP 139/74; PULSE 72; RESP 16; TEMP 36.6
== END 2021-04-06 19:00 | disposition home or self-care (01) ==
PROVIDERS: Emergency Provider Nurse Practitioner Family; PCP Nurse Practitioner Family
DX: S39.012A Strain of muscle, fascia and tendon of lower back, initial encounter (principal); X50.3XXA Overexertion from repetitive movements, initial encounter; M81.0 Age-related osteoporosis without current pathological fracture; E78.5 Hyperlipidemia, unspecified; K21.9 Gastro-esophageal reflux disease without esophagitis; J44.9 Chronic obstructive pulmonary disease, unspecified; I25.10 Atherosclerotic heart disease of native coronary artery without angina pectoris; F17.210 Nicotine dependence, cigarettes, uncomplicated; G35 Multiple sclerosis; Z79.899 Other long term (current) drug therapy
CPT/HCPCS: G0463; 72100; 96372; 99202

== ENCOUNTER → 2021-08-31 12:15 | Outpatient (CLI) | payer MEDICARE, OTHER, SELFPAY ==
--- NOTE | 2021-08-31 12:20 | XR_ITS ---
PROCEDURE: XR CHEST 2V CLINICAL HISTORY: LT RIB PAIN COMPARISON: CT CTAC CTA-CHEST from 11/06/2017 CR CXR2V XR chest 2V from 02/01/2018 CR CXR1VP XR chest portable from 05/22/2018 DX CXR2V XR chest 2V from 12/05/2018 FINDINGS: The cardiomediastinal silhouette and pulmonary vascularity are within normal limits. The lungs are clear without infiltrates, suspicious nodules, or pleural effusions. Calcified granulomas noted in the right lower lobe IMPRESSION: No acute findings. Dictated by: Ryan Benedict MD 08/31/2021 16:12 Ryan Benedict MD in [place] 08/31/2021 16:12
--- NOTE | 2021-08-31 13:18 | MM_ITS ---
PROCEDURE INFORMATION: Exam: Bilateral Screening 3D Mammography Exam date and time: 08/31/2021 1:18 PM Age: 56 years old Clinical indication: Encounter for screening mammogram for malignant neoplasm of breast TECHNIQUE: Imaging protocol: Bilateral screening tomosynthesis and 2D mammography including computer-aided detection (CAD) when performed. COMPARISON: DMSB DIG MAMM-SCREEN JAYLA 07/14/2016 4:31 PM FINDINGS: MAMMOGRAPHY: Breast composition: The breast tissue is composed of scattered areas of fibroglandular density. Mass: None. Architectural distortion: None. Calcifications: No suspicious calcifications. Asymmetric density: None. Skin thickening: None. Axillary adenopathy: None. IMPRESSION: No mammographic evidence of malignancy. Annual screening is recommended unless otherwise clinically indicated. ASSESSMENT: BI-RADS Category 1: Negative
== END ==
PROVIDERS: PCP Nurse Practitioner Family; Visit Provider Nurse Practitioner Family
DX: Z12.31 Encounter for screening mammogram for malignant neoplasm of breast (principal); R07.81 Pleurodynia
CPT/HCPCS: 71046; 77063; 77067

== ENCOUNTER → 2021-12-15 11:37 | Outpatient (CLI) | payer MEDICARE, OTHER, SELFPAY ==
[2021-12-15 13:09] LABS: Alanine Aminotransferase 38 U/L (12-78); Albumin Level 4.3 g/dl (3.5-5.0); Alkaline Phosphatase 71 U/L (38-126); Aspartate Amino Transferase 37 U/L (14-36); Bilirubin,Indirect 0.5 mg/dL (0.0-0.9); Bilirubin,Total 0.5 mg/dl (0.2-1.3); Bilirubin,Unconjugated 0.5 mg/dL (0.0-1.1); Chol/HDL Ratio 3.9 (1-3.5); Cholesterol 155 mg/dl (140-200); HDL Cholesterol 40 mg/dl (40-60); Total Protein,Serum 6.5 g/dl (6.3-8.2); Triglycerides 153 mg/dl (30-150); VLDL Cholesterol 31 mg/dL (0-40)
[2021-12-15 13:20] LABS: Direct LDL Cholesterol 89.37 mg/dL (100-129)
== END ==
PROVIDERS: PCP Nurse Practitioner Family; Visit Provider Internal Medicine
DX: E78.2 Mixed hyperlipidemia (principal); I11.9 Hypertensive heart disease without heart failure; I20.9 Angina pectoris, unspecified; I73.9 Peripheral vascular disease, unspecified; I74.9 Embolism and thrombosis of unspecified artery
CPT/HCPCS: 36415; 80061; 80076

== ENCOUNTER → 2022-06-15 14:16 | Outpatient (CLI) | payer MEDICARE, OTHER, SELFPAY ==
[2022-06-15 16:18] LABS: Basophils # 0.1 K/mm3 (0-0.2); Basophils % 0.6 % (0.1-2.0); Eosinophils # 0.1 K/mm3 (0.0-0.4); Hematocrit 43.7 % (37.0-47.0); Hemoglobin 13.6 g/dL (12.2-16.2); Lymphocytes # 1.4 K/mm3 (0.7-4.5); Lymphocytes % 15.7 % (10-50); Mean Corpuscular HGB Conc 31.1 g/dL (31.8-35.4); Mean Corpuscular Volume 93.2 fl (81-99); Mean Platelet Volume 9.9 fl (7.4-10.4); Monocytes # 0.7 K/mm3 (0.1-1.0); Monocytes % 7.5 % (1.7-9.3); Neutrophils # 6.8 K/mm3 (1.8-7.8); Neutrophils % 75.3 % (37.0-80.0); Platelet Count 259 K/mm3 (142-424); Red Blood Count 4.69 M/mm3 (4.20-5.40); Red Cell Distribution Width 14.5 % (11.5-17.5)
[2022-06-15 17:16] LABS: Alanine Aminotransferase 26 U/L (12-78); Albumin Level 4.1 g/dl (3.5-5.0); Alkaline Phosphatase 87 U/L (38-126); Anion Gap 10.9 mEq/L (5-15); Aspartate Amino Transferase 25 U/L (14-36); Bilirubin,Indirect 0.2 mg/dL (0.0-0.9); Bilirubin,Total 0.2 mg/dl (0.2-1.3); Bilirubin,Unconjugated 0.1 mg/dL (0.0-1.1); Blood Urea Nitrogen 13 mg/dl (7-17); Calcium 9.9 mg/dl (8.4-10.2); Carbon Dioxide 27 mmol/L (22.0-30.0); Chloride 105 mmol/L (98-107); Chol/HDL Ratio 3.1 (1-3.5); Cholesterol 192 mg/dl (140-200); Estimated Glomerular Filt Rate 104 ml/min (>60); GFR (African American) 126 ML/MIN (>60); Glucose 91 mg/dl (74-100); HDL Cholesterol 61 mg/dl (40-60); Magnesium 1.9 mg/dl (1.6-2.3); Potassium 4.9 mmoL/L (3.5-5.1); Sodium 138 mmol/L (136-145); Total Protein,Serum 6.7 g/dl (6.3-8.2); Triglycerides 184 mg/dl (30-150); VLDL Cholesterol 37 mg/dL (0-40)
[2022-06-15 17:28] LABS: Direct LDL Cholesterol 90.85 mg/dL (100-129)
[2022-06-15 17:32] LABS: Free T4 (Free Thyroxine) 1.03 ng/dl (0.78-2.19)
[2022-06-15 17:47] LABS: Thyroid Stimulating Hormone 2.54 uIU/mL (0.465-4.68)
== END ==
PROVIDERS: PCP Nurse Practitioner Family; Visit Provider Nurse Practitioner
DX: E78.2 Mixed hyperlipidemia (principal); I11.9 Hypertensive heart disease without heart failure; I73.9 Peripheral vascular disease, unspecified; I74.9 Embolism and thrombosis of unspecified artery; I20.8 Other forms of angina pectoris
CPT/HCPCS: 36415; 80048; 80061; 80076; 83735; 84439; 84443; 85025

== ENCOUNTER → 2022-06-20 07:19 | Outpatient (CLI) | payer MEDICARE, OTHER, SELFPAY ==
--- NOTE | 2022-06-20 | CA_ITS ---
APPROVED REPORT Exam: Pharmacologic Technologist: Isabela Ho, Ht: 5 ft 5 in Wt: 196 lbs BSA: 1.96 m2 HR: 56 bpm BP: 105/46 mmHg Rhythm: SR Medical History Medical History: Hyperlipidemia Medications: Amlodipine,,,,, Atorvastatin,,,,, XaRELTO,,,,, CloPIdogrel,,,,, BisOPROLOL Fumarate,,,,, SpirOnALACTONE,,,,, CyclobenAPRINE,,,,, OxYbutyIN,,,,, Fluxetine,,,,, Furosemide,,,,, TecfIDEra,,,,, Cardiac Risk Factors: Hyperlipidemia, Smoking Stress Test Details Test: LEXISCAN HR Resting HR: 55 bpm Max Heart Rate (APMHR): 165.730484 bpm Max HR Achieved: 90 bpm Target HR (85% APMHR): 140.203122 bpm % of APMHR: 54.55 Recovery HR: 80 bpm BP Resting BP: 105/46 mmHg Max BP: 123/76 mmHg Recovery BP: 113.0/61.0 mmHg ECG Resting ECG: SR Clinical Exercise duration: 04:00 min Highest Stage Achieved: Exercise capacity: 1.0 METs Stress ECG Conclusion During lexiscan pt experinced SOA and dizziness, no CP noted. No arrhythmias noted. <1.5mm ST segment changes. Test Summary REST . . . . . . . Sitting REST 04:12 . . 55 . 105/ 46 . . Stage 1 01:00 . . 84 . . . . Stage 2 01:00 . . 89 . 117/ 71 . . Stage 3 01:00 . . 88 . 123/ 76 . . Stage 4 01:00 . . 81 . 109/ 60 . Stop exercise at 04:00 RECOVERY 01:00 . . 81 . . . . RECOVERY 02:00 . . 78 . 113/ 61 . . RECOVERY 02:39 . . 76 . 117/ 65 . . Electronically signed by : Pj Lou MD 06/20/2022 18:33:59
--- NOTE | 2022-06-20 07:20 | NM_ITS ---
APPROVED REPORT Exam: Nuclear Stress Test Indication: chest pain..short of breath..fatigue Patient Location: Outpatient Stress Tech: Isabela CUENCA Tech:Claudia Caldwell ERIKA RT(R)(N) Ht: 5 ft 5 in Wt: 196 lbs Bra Size: 38b HR: 55 bpm BP: 105/46 mmHg BSA: 1.96 m2 BMI: 32.6 History: chest pain..short of breath..fatigue Procedure: Patient received a 0.4 mg of intravenous Lexiscan, resting heart rate 55 bpm, resting blood pressure 105/46 mmHg, with Lexiscan maximum heart rate achived was 90 bpm which is Less than 85 % of the maximum predicted heart rate and blood pressure was 123/76 mmHg. With Lexiscan, patient denied any complaint of chest pain. Patient was unable to lay on her belly for prone images. Electrocardiogram Resting electrocardiogram shows sinus bradycardia, with Lexiscan there is less than 1.[address] segment depression noted from the baseline EKG. The EKG portion of the Lexiscan is nondiagnostic. Cardiac Stress and Resting SPECT Images: Cardiac Stress and Resting SPECT images were obtained using technetium 99m Myoview 30.8 mCi stress and 10.98 mCi at rest. Gated SPECT analysis of segmental wall motion and calculation of the ejection fraction also done. Cardiac stress and rest SPECT may show uniform myocardial activity without segmental perfusion abnormality, computer derived ejection fraction is 66% with no regional wall motion abnormality, right ventricle is normal size and contractility. Conclusion: 1. The EKG portion of the Lexiscan is nondiagnostic. 2. No scintigraphic evidence of reversible ischemia seen, computer derived ejection fraction is 66% with no regional wall motion abnormality, right ventricle is normal size and contractility. 3. Normal Lexiscan Myoview study. Electronically signed by : jP Lou MD 06/20/2022 18:41:11
--- NOTE | 2022-06-20 07:24 | CA_ITS ---
APPROVED REPORT EXAM: Comprehensive 2D, Doppler, and color-flow Echocardiogram County Commissioner: Chyna Sullivan RT(R) Ht: 5 ft 5 in Wt: 196lbs BSA: 1.96 BP: 119/41 mmHg Indications: CP, COPD, smoker, HTN, hyperipidemia, CAD, DD, GERD, hx of arterial thrombus of great toe post knee surgery. 2D Dimensions LVOT 1.98 cm (M/F) 1.5-2.5 LVEF (Almanzar's) 68.40 % F: 54 - 74 LV Volume 92.90 mL F: 46 - 106 LV Volume Index 47.39 mL/m2 F: 29 - 61 LA Volume 20.30 mL LA Volume Index 10.35 mL/m2 (M/F) 16-34 M-Mode Dimensions RVDd 2.85 cm (0.9-2.6) LA Diam 4.05 cm (1.9-4.0) LVDd 5.06 cm (3.5-5.7) Ao Diam 2.94 cm (2.0-3.7) LVDs 3.70 cm (3.5-5.7) IVSd 0.81 cm (0.6-1.1) PWd 1.10 cm (0.6-1.1) EF (Teich) 52.20% FS 26.90% EDV (Teich) 121.60 mL ESV (Teich) 58.10 mL LV Diastology E Decel Time 170.00 (160-240 msec) E/A Ratio 1.4 MED E' 12.40 (< 7 cm/sec) E'/MED E' Ratio 7.73 (>14) LAT E' 12.30 (<10 cm/sec) E/LAT E' Ratio 7.79 (>14) Mitral Valve MV E Max Satya. 96.00 (40-130 cm/s) MV A Velocity 68.00 (40-130 cm/s) E/A Ratio 1.40 MV Decel. Time 170.00 (160-240 ms) MV PHT 50.00 ms Left Ventricle Atrium is mildly enlarged, left ventricle is normal size mild concentric left ventricular hypertrophy, estimated ejection fraction 55% with no obvious regional wall motion abnormality, diastolic parameters are inconclusive. Right Ventricle Right atrium and right ventricle are mildly enlarged with normal contractility. Aortic Valve Aortic valve is minimally thickened and fibrosed there is no aortic stenosis or aortic insufficiency. Mitral Valve Mitral valve grossly normal, there is trace mitral regurgitation. Tricuspid Valve Tricuspid valve grossly normal, there is trace tricuspid regurgitation, tricuspid regurgitation jet velocity is inadequate for calculation of the right ventricular systolic pressure. Pulmonic Valve Pulmonic valve is poorly visualized. Great Vessels Aortic root is normal size. Inferior vena cava normal size with normal inspiratory collapse. Pericardium No significant pericardial effusion noted. Conclusion 1. Mild biatrial enlargement, normal left ventricular size, mild concentric left ventricular hypertrophy, estimated ejection fraction 55% with no regional wall motion abnormality, diastolic parameters are inconclusive. 2. Mildly enlarged right ventricle with normal contractility. 3. Trace mitral and tricuspid regurgitation. 4. No significant pericardial effusion. 5. Inferior vena cava normal size with normal inspiratory collapse. Electronically signed by : Pj Lou MD 06/20/2022 19:17:02
== END ==
PROVIDERS: PCP Nurse Practitioner Family; Visit Provider Nurse Practitioner
DX: E78.2 Mixed hyperlipidemia (principal); I11.9 Hypertensive heart disease without heart failure; I73.9 Peripheral vascular disease, unspecified; I74.9 Embolism and thrombosis of unspecified artery; I20.8 Other forms of angina pectoris
CPT/HCPCS: 78452; 93017; 93306; A9502; J2785

== ENCOUNTER → 2022-08-01 15:39 | Outpatient (CLI) | payer MEDICARE, OTHER, SELFPAY ==
[2022-08-01 15:50] LABS: Coronavirus 19, PCR Not Detected (NotDetected); Influenza A, PCR Not Detected (NotDetected); Influenza B, PCR Not Detected (NotDetected)
== END ==
PROVIDERS: PCP Nurse Practitioner Family; Referring Provider Nurse Practitioner; Visit Provider Surgery
DX: K21.9 Gastro-esophageal reflux disease without esophagitis (principal); Z01.812 Encounter for preprocedural laboratory examination; Z20.822 Contact with and (suspected) exposure to COVID-19; Z13.810 Encounter for screening for upper gastrointestinal disorder
CPT/HCPCS: C9803; U0003; U0005

== ENCOUNTER 2022-08-02 12:15 | Day surgery (SDC) | payer MEDICARE, OTHER, SELFPAY ==
[2022-08-02 12:39] VITALS: BP 120/48; PULSE 64; RESP 18; TEMP 36.6; O2SAT 94; BMI 32.5
[2022-08-02 12:49] VITALS: O2SAT 98
[2022-08-02 13:15] VITALS: BP 96/48; PULSE 62; RESP 18; TEMP 36.2; O2SAT 96
--- NOTE | 2022-08-02 13:16 | HMH.SCOPE ---
Procedure: Date: 08/02/22 Patient Date of :: 1965 Procedure Performed:: Esophagogastroduodenoscopy with biopsy Indications:: Gastroesophageal reflux Dysphagia Performing Provider:: Danish Brooks MD Referring Provider:: . Sedation:: Monitored anesthesia care Procedure:: After informed consent was obtained the patient was taken to the endoscopy suite. Sedation ensued after the patient was transferred to the left lateral decubitus position. Pulse, blood pressure, and oxygen saturation were monitored throughout the procedure. The endoscope was advanced beyond the duodenal bulb. Retroflexion within the gastric lumen was accomplished. The gastroscope was carefully removed and the patient was transferred to recovery in stable condition. Please see findings and specimens below for detail. Findings:: Gastroesophageal junction at 40 cm Tortuous esophagus Small sliding hiatal hernia Bile reflux (mild) Moderate gastritis Specimens:: Antral biopsy Recommendations:: Follow-up pathology Continue proton pump inhibition Consider barium swallow and possible UGI/SBFT Complications:: No immediate Estimated blood obtained (mL): 1
[2022-08-02 13:25] VITALS: BP 106/63; PULSE 55; RESP 18; TEMP 36.2; O2SAT 97
[2022-08-02 13:35] VITALS: BP 107/52; PULSE 52; RESP 18; TEMP 36.2; O2SAT 98
[2022-08-02 13:53] VITALS: BP 114/73; PULSE 54; RESP 18; TEMP 36.2; O2SAT 99
== END 2022-08-02 13:53 | disposition home or self-care (01) ==
PROVIDERS: PCP Nurse Practitioner Family; Visit Provider Surgery
PROC: 0DJ08ZZ Inspection of Upper Intestinal Tract, Via Natural or Artificial Opening Endoscopic (ICD-10-PCS; CPT 43235; principal; 2022-08-02 13:30)
DX: K21.9 Gastro-esophageal reflux disease without esophagitis (principal); R13.10 Dysphagia, unspecified; K44.9 Diaphragmatic hernia without obstruction or gangrene; Z72.0 Tobacco use; Z79.899 Other long term (current) drug therapy
CPT/HCPCS: 43239; 88305

== ENCOUNTER → 2022-08-15 07:56 | Outpatient (CLI) | payer MEDICARE, OTHER, SELFPAY ==
--- NOTE | 2022-08-15 08:13 | FL_ITS ---
FINAL REPORT CLINICAL HISTORY: dysphagia time-3.15 FINDINGS: UPPER GI WITH SBFT UPPER GI EXAM HISTORY: Epigastric pain with dysphagia PROCEDURE: The patient ingested barium. Effervescent crystals were also administered. Spot and overhead films were obtained. Fluoroscopy time: 3 minutes 15 seconds. 21 radiographs were obtained. FINDINGS: UGI: The esophagus is normal. There is no hiatal hernia. There is no gastroesophageal reflux. Peristalsis is normal. There are nonspecific prominent rugal folds of the stomach. The duodenal bulb is normal. A 13 mm barium catheter passes through the esophagus and into the stomach without delay SBFT: The manager user experience film is normal. There is no evidence of obstruction. The mucosal fold pattern is normal. The terminal ilium is normal. IMPRESSION: Prominent nonspecific rugal folds of the stomach which can be seen with gastritis. Films reviewed , interpreted and dictated by Dr. Funes. Transcribed by Costa Hanson PA-C. Reviewed, Interpreted and Dictated by Ron Funes MD Transcribed by REZA Rivas Authenticated and [facility]
== END ==
PROVIDERS: PCP Nurse Practitioner Family; Visit Provider Surgery
DX: R13.10 Dysphagia, unspecified (principal)
CPT/HCPCS: 74220; 74246; 74248

== ENCOUNTER 2022-10-11 12:15 | Emergency (ER) | payer MEDICARE, OTHER, SELFPAY ==
--- NOTE | 2022-10-11 12:52 | XR_ITS ---
PROCEDURE INFORMATION: Exam: XR Left Ribs with PA Chest Exam date and time: 10/11/2022 12:56 PM Age: 57 years old Clinical indication: Chest wall pain; Left; Additional info: Fell in bath tub on sat. Left rib pain TECHNIQUE: Imaging protocol: Radiologic exam of the Left ribs with PA chest. Views: 3 views COMPARISON: CR XR CHEST 2V 08/31/2021 12:47 PM FINDINGS: Lungs: Unremarkable. No consolidation. Pleural spaces: Unremarkable. No pleural effusion. No pneumothorax. Heart/Mediastinum: Unremarkable. No cardiomegaly. Bones/joints: Unremarkable. IMPRESSION: No acute findings.
[2022-10-11 13:03] LABS: Apearance,Urine Clear (Clear); Bilirubin,Urine Negative (Negative); Blood, Urine Trace (Negative); Color,Urine Dark Yellow (Yellow); Glucose,Urine (UA) Negative (Negative); Ketones,Urine Negative (Negative); Protein,Urine Negative (Negative); Specific Gravity, Urine 1.025 (1.005-1.030); UTC Leukocyte Esterase,Urine Negative (Negative); UTC Nitrate,Urine Positive (Negative); Urobilinogen,Urine 0.2 EU/dl (0.2)
[2022-10-11 13:20] VITALS: BP 131/72; PULSE 71; RESP 18; TEMP 36.7; O2SAT 97; BMI 31.4
--- NOTE | 2022-10-11 13:53 | EXP.UTC ---
Discharge Plan Disposition Patient Disposition: Home, Self-Care Condition: Good Prescriptions Prescriptions: New cefdinir 300 mg capsule 300 mg PO BID Qty: 20 0RF No Action oxybutynin chloride 10 mg tablet extended release 24 hr 10 mg PO BID dimethyl fumarate [Tecfidera] 240 mg capsule,delayed release(DR/EC) 240 mg PO BID furosemide 40 mg tablet 40 mg PO DAILY PRN (Reason: Fluid) Qty: 30 5RF spironolactone 25 mg tablet 25 mg PO DAILY PRN (Reason: Fluid) famotidine 40 mg tablet 40 mg PO DAILY clopidogrel 75 mg tablet See Rx Instructions .ROUTE .COMPLEX Qty: 30 4RF Dose Instruction: TAKE 1 TABLET BY MOUTH ONCE DAILY Rx Instructions: TAKE 1 TABLET BY MOUTH ONCE DAILY valacyclovir 1,000 MG tablet 1,000 mg PO DAILY fluoxetine 10 mg capsule 40 mg PO QAM atorvastatin 80 mg tablet See Rx Instructions .ROUTE .COMPLEX Rx Instructions: TAKE 1 TABLET BY MOUTH ONCE DAILY FOR CHOLESTEROL amlodipine 2.5 mg tablet See Rx Instructions .ROUTE .COMPLEX Rx Instructions: TAKE 1 TABLET BY MOUTH ONCE DAILY bisoprolol fumarate 5 mg tablet See Rx Instructions .ROUTE .COMPLEX Rx Instructions: TAKE 1/2 TABLET BY MOUTH EVERY DAY FOR BLOOD PRESSURE pantoprazole [Protonix] 40 mg tablet,delayed release (DR/EC) 40 mg PO DAILY Xarelto 20 mg tablet See Rx Instructions .ROUTE .COMPLEX Rx Instructions: TAKE ONE TABLET BY MOUTH EVERY DAY FOR BLOOD THINNER ibuprofen 600 MG tablet 600 mg PO Q6HP PRN (Reason: Mild Pain) Qty: 30 0RF cyclobenzaprine 10 MG tablet 10 mg PO BIDP PRN (Reason: Muscle Spasm) Qty: 20 0RF Referrals Follow up/Referrals: Chaya Skelton APRN [Primary Care Provider] - See instructions Activity Restrictions/Add. Instructions Additional Instructions/Restrictions: *Increase fluids. Water not Soda or Tea *Start antibiotic immediately and be sure to take as ordered for the FULL length of time although you should start to see improvement over the next 48 hours *Be SURE to follow up anytime for new or worsening symptoms with your family doctor. AND in 48 hours for urine culture results with your family doctor, if you do not have a doctor then you may call back to the [facility] for urine culture results and further treatment. We do recommend that you choose and establish care with a Primary Care Physician. ?AND follow up with them ?in 10-14 days to repeat UA to ensure infection is resolved and blood no longer present *Be sure to let your PCP know that we sent urine cultures from the [facility] so they can follow up to ensure that you area the on the correct antibiotic Call your doctor office and make appointment for 48 hours (2 days from today) ?to follow up and get the results of your urine culture and further treatment Follow up immediately in the Emergency room if you notice blood in your urine, difficulty urinating, fever chills or body aches Warm compresses on side may help with hematoma Clinical Impressions Clinical Impression: UTI (urinary tract infection) Qualifiers: Urinary tract infection type: site unspecified Hematuria presence: with hematuria Qualified Code(s): N39.0 - Urinary tract infection, site not specified Contusion of rib Qualifiers: Encounter type: initial encounter Laterality: left Qualified Code(s): S20.212A - Contusion of left front wall of thorax, initial encounter Instructions Patient Instructions: Urinary Tract Infection, DI for Urinary Tract Infection (UTI), DI for Rib Contusion, Cefdinir Discharge ED Provider: Jennifer Barbour [facility] [place] HPI General Stated complaint: AO 10/08 @home Lt side pain Mode of Arrival: Ambulatory Source of Information: Patient Limitations: No Limitations Time Seen by Provider: 10/11/22 13:20 Description of Symptoms (Recalled from Triage Doc. by RN): PATIENT C/O PAIN TO LEFT RIB AND KIDNEY AREA AFTER FALLING IN SHOWER ON MONDAY. BRUISING NOTED TO LEFT SIDE. PAT
[2022-10-11 14:13] VITALS: BP 131/72; PULSE 71; RESP 18; TEMP 36.7; O2SAT 97
== END 2022-10-11 14:21 | disposition home or self-care (01) ==
PROVIDERS: Emergency Provider Nurse Practitioner; PCP Nurse Practitioner Family
DX: N39.0 Urinary tract infection, site not specified (principal); B96.1 Klebsiella pneumoniae [K. pneumoniae] as the cause of diseases classified elsewhere; S20.212A Contusion of left front wall of thorax, initial encounter
CPT/HCPCS: 99212; 71101; 81003; 87086; 87088; 87186

== ENCOUNTER → 2022-11-02 15:35 | Outpatient (CLI) | payer MEDICARE, OTHER, SELFPAY ==
[2022-11-02 16:42] LABS: Chloride 105 mmol/L (98-107); Potassium 4.3 mmoL/L (3.5-5.1); Sodium 139 mmol/L (136-145)
[2022-11-02 16:45] LABS: Alanine Aminotransferase 16 U/L (12-78); Albumin Level 4.1 g/dl (3.5-5.0); Albumin/Globulin Ratio 1.7 (1.1-1.8); Alkaline Phosphatase 88 U/L (38-126); Anion Gap 11.3 mEq/L (5-15); Aspartate Amino Transferase 22 U/L (14-36); Bilirubin,Total 0.3 mg/dl (0.2-1.3); Blood Urea Nitrogen 14 mg/dl (7-17); Carbon Dioxide 27 mmol/L (22.0-30.0); Estimated Glomerular Filt Rate 104 ml/min (>60); GFR (African American) 126 ML/MIN (>60); Globulin 2.4 g/dL (1.3-3.2); Total Protein,Serum 6.5 g/dl (6.3-8.2)
[2022-11-02 16:46] LABS: Calcium 9.4 mg/dl (8.4-10.2); Glucose 91 mg/dl (74-100)
[2022-11-02 16:47] LABS: Basophils # 0.1 K/mm3 (0-0.2); Basophils % 0.7 % (0.1-2.0); Eosinophils # 0.1 K/mm3 (0.0-0.4); Eosinophils % 1.5 % (0.1-12.0); Hematocrit 42.6 % (37.0-47.0); Lymphocytes # 1.1 K/mm3 (0.7-4.5); Mean Corpuscular HGB Conc 32.8 g/dL (31.8-35.4); Mean Corpuscular Hemoglobin 29.5 pg (27.0-31.2); Mean Corpuscular Volume 89.9 fl (81-99); Monocytes # 0.5 K/mm3 (0.1-1.0); Monocytes % 7.2 % (1.7-9.3); Neutrophils # 5.6 K/mm3 (1.8-7.8); Neutrophils % 75.7 % (37.0-80.0); Platelet Count 265 K/mm3 (142-424); Red Blood Count 4.74 M/mm3 (4.20-5.40); Red Cell Distribution Width 14.1 % (11.5-17.5); White Blood Count 7.4 K/mm3 (4.8-10.8)
== END ==
PROVIDERS: PCP Nurse Practitioner Family; Visit Provider Psychiatry & Neurology Sleep Medicine
DX: G35 Multiple sclerosis (principal)
CPT/HCPCS: 36415; 80053; 85025

== ENCOUNTER → 2023-01-18 14:48 | Outpatient (CLI) | payer MEDICARE, OTHER, SELFPAY ==
--- NOTE | 2023-01-18 15:00 | CT_ITS ---
FINAL REPORT CLINICAL HISTORY: HISTORY OF SMOKING, 1 PPD X 30 YEARS FINDINGS: Low-Dose Chest CT Axial images were obtained from the lung apex to the mid abdomen by computed tomography. Low-dose protocol was utilized. CTDI vol (mGy): 2.90 DLP (mGy-cm): 96.38 There are mildly prominent mediastinal lymph nodes. An AP window lymph node measures 17 mm. There is no hilar lymphadenopathy. The heart is proper size. There is no pericardial or pleural effusion. Lung window images demonstrate changes of emphysema. There is a 5 mm left lower lobe nodule on image 51. There is a 6 mm right lower lobe nodule on image 56. The lungs are otherwise clear.. Limited images of the upper abdomen demonstrate no acute abnormality. IMPRESSION: 5 mm left lower lobe and 6 mm right lower lobe pulmonary nodules. Lung RADS category 3. Recommend 6 month follow-up low-dose chest CT. Reviewed, Interpreted and Dictated by Sugar Guevara MD Transcribed by Lynda Recinos Authenticated and [facility]
--- NOTE | 2023-01-18 15:04 | MM_ITS ---
PROCEDURE INFORMATION: Exam: MG Bilateral Screening 3D Mammography Exam date and time: 01/18/2023 3:22 PM Age: 57 years old Clinical indication: Screening mammogram TECHNIQUE: Imaging protocol: Bilateral Screening tomosynthesis and 2D mammography including computer-aided detection (CAD) when performed. COMPARISON: 1. MG MM DIG SCREENING MAMM BI W/CAD 08/31/2021 1:32 PM 2. MG DMSB DIG MAMM-SCREEN JAYLA 07/14/2016 4:31 PM 3. MG MA MAMMO SCRN DIGITL BILAT 12/04/2013 1:34 PM FINDINGS: MAMMOGRAPHY: Breast composition: The breasts are almost entirely fatty. Mass: None. Architectural distortion: No new or suspicious architectural distortion. Calcifications: No new or suspicious calcifications are present Asymmetric density: No new or suspicious asymmetric density is present Skin thickening: None. Axillary adenopathy: None. IMPRESSION: No mammographic evidence of malignancy. Recommend annual screening mammography unless otherwise clinically indicated. ASSESSMENT: BI-RADS category 1: Negative
== END ==
PROVIDERS: PCP Nurse Practitioner Family; Visit Provider Nurse Practitioner Family
DX: Z87.891 Personal history of nicotine dependence (principal); Z12.2 Encounter for screening for malignant neoplasm of respiratory organs; Z12.31 Encounter for screening mammogram for malignant neoplasm of breast
CPT/HCPCS: 71271; 77063; 77067

== ENCOUNTER 2023-03-19 12:39 | Emergency (ER) | payer MEDICARE, OTHER, SELFPAY ==
[2023-03-19 13:50] VITALS: BP 127/82; PULSE 89; RESP 18; TEMP 36.9; O2SAT 98; BMI 33.5
--- NOTE | 2023-03-19 14:26 | EXP.UTC ---
Discharge Plan Disposition Patient Disposition: Home, Self-Care Condition: Good Prescriptions Prescriptions: New clindamycin HCl 300 mg capsule 300 mg PO Q6H 10 Days Qty: 40 0RF mupirocin 2 % ointment 1 applic topical TID Qty: 22 0RF Rx Instructions: apply to lesion on outside of right ear as directed No Action oxybutynin chloride 10 mg tablet extended release 24 hr 10 mg PO BID dimethyl fumarate [Tecfidera] 240 mg capsule,delayed release(DR/EC) 240 mg PO BID fluoxetine 10 mg capsule 40 mg PO QAM amlodipine 2.5 mg tablet See Rx Instructions .ROUTE .COMPLEX Rx Instructions: TAKE 1 TABLET BY MOUTH ONCE DAILY Xarelto 20 mg tablet 20 mg PO DAILY Rx Instructions: TAKE ONE TABLET BY MOUTH EVERY DAY FOR BLOOD THINNER atorvastatin 80 mg tablet 80 mg PO DAILY Rx Instructions: TAKE 1 TABLET BY MOUTH ONCE DAILY FOR CHOLESTEROL clopidogrel 75 mg tablet 75 mg PO DAILY Rx Instructions: TAKE 1 TABLET BY MOUTH ONCE DAILY bisoprolol fumarate 5 mg tablet 5 mg PO DAILY Rx Instructions: TAKE 1/2 TABLET BY MOUTH EVERY DAY FOR BLOOD PRESSURE pantoprazole 40 mg tablet,delayed release (DR/EC) 40 mg PO DAILY Rx Instructions: TAKE 1 TABLET BY MOUTH ONCE DAILY buspirone 5 mg tablet 5 mg PO BID famciclovir 500 mg tablet 500 mg PO BID Referrals Follow up/Referrals: Chaya Skelton APRN [Primary Care Provider] - See instructions Dilip Wood MD [Physician] - See instructions Dimitris Larson MD [Physician] - See instructions Bharat Pal III, MD [Staff Physician] - See instructions Activity Restrictions/Add. Instructions Additional Instructions/Restrictions: Take medication as prescribed GO straight to ER if any worsening of symptms since this is where you went before when it got worse Follow up with ENT this week call for appointment Straight to ER if any worsening of symptoms Clinical Impressions Clinical Impression: Cellulitis of ear Instructions Patient Instructions: Cellulitis, Clindamycin, Mupirocin Discharge ED Provider: Jennifer Barbour [facility] [place] HPI General Stated complaint: RT ear pain w/ inflammation Mode of Arrival: Ambulatory Source of Information: Patient Limitations: No Limitations Time Seen by Provider: 03/19/23 14:26 Description of Symptoms (Recalled from Triage Doc. by RN): right ear infection HEENT Symptoms (Recalled from RN notes): Yes Resp Symptoms (Recalled from RN notes): No Skin Symptoms (Recalled from RN notes): No MS Symptoms (Recalled from RN notes): No Functional Status (Recalled from RN notes): n/a History of Present Illness Provider Complaint: Patient states that she had a bump on the outside of her ear and she scratched it an now she is having swelling and redness on the outside of ear and has got worse since yesterday States that area is tender to the touch red and warm Related Data Home Medications Medication Instructions Recorded Confirmed dimethyl fumarate 240 mg 240 mg PO BID MS 11/24/17 03/19/23 capsule,delayed release (Tecfidera) oxybutynin chloride 10 mg 10 mg PO BID bladder 11/24/17 03/19/23 tablet,extended release 24 hr fluoxetine 10 mg capsule 40 mg PO QAM mood 01/13/20 03/19/23 amlodipine 2.5 mg tablet See Rx Instructions .Route 08/02/22 03/19/23 .COMPLEX bp rivaroxaban 20 mg tablet (Xarelto) 20 mg PO DAILY Blood thinner 08/02/22 03/19/23 atorvastatin 80 mg tablet 80 mg PO DAILY Cholesterol 02/15/23 03/19/23 bisoprolol fumarate 5 mg tablet 5 mg PO DAILY htn 02/15/23 03/19/23 clopidogrel 75 mg tablet 75 mg PO DAILY heart cath 02/15/23 03/19/23 pantoprazole 40 mg tablet,delayed 40 mg PO DAILY Reflux/Acid reflux 02/15/23 03/19/23 release buspirone 5 mg tablet 5 mg PO BID . 03/19/23 03/19/23 famciclovir 500 mg tablet 500 mg PO BID . 03/19/23 03/19/23 Previous Rx's Medication Instructions Recorded clindamycin HCl 300 mg capsule 300 mg P
[2023-03-19 14:45] VITALS: BP 127/82; PULSE 89; RESP 18; TEMP 36.9; O2SAT 98
== END 2023-03-19 14:44 | disposition home or self-care (01) ==
PROVIDERS: Emergency Provider Nurse Practitioner; PCP Nurse Practitioner Family
DX: H60.11 Cellulitis of right external ear (principal); F17.210 Nicotine dependence, cigarettes, uncomplicated; J44.9 Chronic obstructive pulmonary disease, unspecified; I11.9 Hypertensive heart disease without heart failure; E78.5 Hyperlipidemia, unspecified; K21.9 Gastro-esophageal reflux disease without esophagitis
CPT/HCPCS: 99212; 99214; G0463

== ENCOUNTER 2023-03-23 21:20 | Emergency (ER) | payer MEDICARE, OTHER, SELFPAY ==
[2023-03-23 21:23] VITALS: BP 118/77; PULSE 74; RESP 16; TEMP 37.1; O2SAT 97; BMI 31.6
[2023-03-23 21:43] VITALS: BP 118/77; PULSE 74; O2SAT 97
--- NOTE | 2023-03-23 21:50 | XR_ITS ---
PROCEDURE INFORMATION: Exam: XR Left Hand Exam date and time: 03/23/2023 10:09 PM Age: 58 years old Clinical indication: Swelling; Hand; Left; Additional info: Fall, pain/swelling TECHNIQUE: Imaging protocol: Radiologic exam of the left hand. Views: 3 or more views. COMPARISON: CR XR WRIST LT MIN 3V 12/22/2019 5:32 PM FINDINGS: Bones/joints: No evidence of acute fracture or malalignment. Soft tissues: Unremarkable. IMPRESSION: No evidence of acute osseous abnormality in the left hand.
--- NOTE | 2023-03-23 21:50 | XR_ITS ---
PROCEDURE INFORMATION: Exam: XR Left Wrist Exam date and time: 03/23/2023 10:09 PM Age: 58 years old Clinical indication: Swelling; Wrist; Left; Additional info: Fall, pain/swelling TECHNIQUE: Imaging protocol: Radiologic exam of the left wrist. Views: 3 or more views. COMPARISON: CR XR WRIST LT MIN 3V 12/22/2019 5:32 PM FINDINGS: Bones/joints: Questionable punctate bone fragment along the inferior margin of the triquetrum. No other findings suspicious for acute osseous abnormality in the wrist. Carpal arcs are well-maintained. Soft tissues: Unremarkable. IMPRESSION: 1. No definitive evidence of acute osseous abnormality in the left wrist. 2. Questionable punctate bone fragment along the inferior margin of the triquetrum. Please correlate with point tenderness. CT could likely better evaluate if clinically indicated.
--- NOTE | 2023-03-23 21:51 | HMH.EDGENADL ---
Discharge Plan Disposition Patient Disposition: Home, Self-Care Condition: Good Prescriptions Prescriptions: No Action oxybutynin chloride 10 mg tablet extended release 24 hr 10 mg PO BID dimethyl fumarate [Tecfidera] 240 mg capsule,delayed release(DR/EC) 240 mg PO BID fluoxetine 10 mg capsule 40 mg PO QAM amlodipine 2.5 mg tablet See Rx Instructions .ROUTE .COMPLEX Rx Instructions: TAKE 1 TABLET BY MOUTH ONCE DAILY Xarelto 20 mg tablet 20 mg PO DAILY Rx Instructions: TAKE ONE TABLET BY MOUTH EVERY DAY FOR BLOOD THINNER atorvastatin 80 mg tablet 80 mg PO DAILY Rx Instructions: TAKE 1 TABLET BY MOUTH ONCE DAILY FOR CHOLESTEROL clopidogrel 75 mg tablet 75 mg PO DAILY Rx Instructions: TAKE 1 TABLET BY MOUTH ONCE DAILY bisoprolol fumarate 5 mg tablet 5 mg PO DAILY Rx Instructions: TAKE 1/2 TABLET BY MOUTH EVERY DAY FOR BLOOD PRESSURE pantoprazole 40 mg tablet,delayed release (DR/EC) 40 mg PO DAILY Rx Instructions: TAKE 1 TABLET BY MOUTH ONCE DAILY buspirone 5 mg tablet 5 mg PO BID famciclovir 500 mg tablet 500 mg PO BID clindamycin HCl 300 mg capsule 300 mg PO Q6H 10 Days Qty: 40 0RF mupirocin 2 % ointment 1 applic topical TID Qty: 22 0RF Rx Instructions: apply to lesion on outside of right ear as directed Referrals Follow up/Referrals: Chaya Skelton APRN [Primary Care Provider] - See instructions Activity Restrictions/Add. Instructions Additional Instructions/Restrictions: You were evaluated in the emergency department today. At this time, your x-rays are reassuring. You have a possible very small fracture of a bone called the triquetrum in your wrist, however it is not convincing on x-rays. I recommend following up with your primary care provider for repeat x-rays if you have continued pain. We are providing you with an Germán wrap for pain relief. Ice and elevate the area. You may also take Tylenol at home as needed for pain. Return to the emergency department for any new or worsening symptoms. Clinical Impressions Clinical Impression: Injury of hand, left Qualifiers: Encounter type: initial encounter Qualified Code(s): S69.92XA - Unspecified injury of left wrist, hand and finger(s), initial encounter Discharge ED Provider: Evelyn Vital General Adult HPI General Chief complaint: Extremity Injury, Upper Stated complaint: AO 05/04/23 1930 Injury left hand lt wrist Time Seen by Provider: 03/23/23 21:40 History of Present Illness HPI narrative: This patient is a 58-year-old female with a history of CAD, hypertension, hyperlipidemia, and CHF on Xarelto and Plavix presenting to the emergency department after a ground-level fall. She states that she was trying to pull something out of the trunk of her car, when she lost her balance and tripped backwards. She caught herself with her left hand. She did not hit her head or lose consciousness. She complains of pain to her left hand at this time. No other injuries noted. She was well prior to the fall. She has been ambulatory since without issue. No headaches, vision changes, neck or back pain, pain in any other extremities, or other concerns. Related Data Home Medications Medication Instructions Recorded Confirmed dimethyl fumarate 240 mg 240 mg PO BID MS 11/24/17 03/19/23 capsule,delayed release (Tecfidera) oxybutynin chloride 10 mg 10 mg PO BID bladder 11/24/17 03/19/23 tablet,extended release 24 hr fluoxetine 10 mg capsule 40 mg PO QAM mood 01/13/20 03/19/23 amlodipine 2.5 mg tablet See Rx Instructions .Route 08/02/22 03/19/23 .COMPLEX bp rivaroxaban 20 mg tablet (Xarelto) 20 mg PO DAILY Blood thinner 08/02/22 03/19/23 atorvastatin 80 mg tablet 80 mg PO DAILY Cholesterol 02/15/23 03/19/23 bisoprolol fumarate 5 mg tablet 5 mg PO DAILY htn 02/15/23 03/19/23 clopidogrel 75 mg tablet 75 mg PO DAILY heart cath 02/15/23 03/19/23
[2023-03-23 22:39] VITALS: BP 114/74; PULSE 71; RESP 16; TEMP 37.1; O2SAT 97
== END 2023-03-23 22:52 | disposition home or self-care (01) ==
PROVIDERS: Emergency Provider Emergency Medicine; PCP Nurse Practitioner Family
DX: M79.642 Pain in left hand (principal); F17.210 Nicotine dependence, cigarettes, uncomplicated; Z79.02 Long term (current) use of antithrombotics/antiplatelets; Z79.01 Long term (current) use of anticoagulants; W01.0XXA Fall on same level from slipping, tripping and stumbling without subsequent striking against object, initial encounter
CPT/HCPCS: 73110; 73130; 99283; 99284

== ENCOUNTER → 2023-04-13 09:35 | Outpatient (CLI) | payer MEDICARE, OTHER, SELFPAY ==
--- NOTE | 2023-04-13 09:55 | MR_ITS ---
PROCEDURE INFORMATION: Exam: MR Head Without Contrast Exam date and time: 04/13/2023 9:56 AM Age: 58 years old Clinical indication: Condition or disease; Multiple sclerosis TECHNIQUE: Imaging protocol: Magnetic resonance imaging of the head without contrast. COMPARISON: No relevant prior studies available. FINDINGS: Brain: T2/FLAIR hyperintensity centered along the margins of the lateral ventricles. No hemorrhage. Cerebral ventricles: No hydrocephalus. Bones/joints: Unremarkable. Paranasal sinuses: Normal as visualized. No acute sinusitis. Mastoid air cells: Normal as visualized. No mastoid effusion. Orbital cavities: Unremarkable. Soft tissues: Unremarkable. IMPRESSION: T2/FLAIR hyperintensity centered along the margins of the lateral ventricles which are nonspecific but would be compatible with the provided history of multiple sclerosis.
--- NOTE | 2023-04-13 09:56 | MR_ITS ---
PROCEDURE INFORMATION: Exam: MR Cervical Spine Without Contrast Exam date and time: 04/13/2023 9:56 AM Age: 58 years old Clinical indication: Condition or disease; Other: Ms; Additional info: Multiple sclerosis TECHNIQUE: Imaging protocol: Magnetic resonance imaging of the cervical spine without contrast. COMPARISON: CT LUNG SCREENING 01/18/2023 3:30 PM FINDINGS: Bones/joints: Examination is limited by technique and motion. No fracture. Normal alignment. Spinal cord: Normal signal. No cord compression. Discs: Concentric disc bulge at C5-C6 which appears to abut the ventral thecal sac and narrow the lateral recesses and neural foramina to some degree. Soft tissues: Unremarkable. Vasculature: Expected flow voids in the vertebral arteries. IMPRESSION: Limited examination with concentric disc bulge at C5-C6 as described above.
== END ==
PROVIDERS: PCP Nurse Practitioner Family; Visit Provider Psychiatry & Neurology Sleep Medicine
DX: G35 Multiple sclerosis (principal)
CPT/HCPCS: 70551; 72141; 76376

== ENCOUNTER → 2023-09-25 15:54 | Outpatient (CLI) | payer MEDICARE, OTHER, SELFPAY ==
[2023-09-25 16:24] LABS: Basophils % 0.4 % (0.1-2.0); Eosinophils # 0.1 K/mm3 (0.0-0.4); Eosinophils % 1.6 % (0.1-12.0); Hematocrit 42.5 % (37.0-47.0); Hemoglobin 14.4 g/dL (12.2-16.2); Lymphocytes # 1.4 K/mm3 (0.7-4.5); Lymphocytes % 19.6 % (10-50); Mean Corpuscular HGB Conc 33.8 g/dL (31.8-35.4); Mean Corpuscular Volume 88.7 fl (81-99); Mean Platelet Volume 8.8 fl (7.4-10.4); Monocytes # 0.5 K/mm3 (0.1-1.0); Monocytes % 6.5 % (1.7-9.3); Neutrophils # 5.2 K/mm3 (1.8-7.8); Neutrophils % 71.9 % (37.0-80.0); Platelet Count 253 K/mm3 (142-424); Red Blood Count 4.79 M/mm3 (4.20-5.40); Red Cell Distribution Width 14.1 % (11.5-17.5); White Blood Count 7.2 K/mm3 (4.8-10.8)
[2023-09-25 17:52] LABS: Alanine Aminotransferase 30 U/L (12-78); Albumin Level 4.2 g/dl (3.5-5.0); Albumin/Globulin Ratio 1.6 (1.1-1.8); Alkaline Phosphatase 74 U/L (38-126); Anion Gap 14.3 mEq/L (5-15); Aspartate Amino Transferase 33 U/L (14-36); Bilirubin,Total 0.5 mg/dl (0.2-1.3); Blood Urea Nitrogen 13 mg/dl (7-17); Calcium 9.4 mg/dl (8.4-10.2); Carbon Dioxide 25 mmol/L (22.0-30.0); Chloride 102 mmol/L (98-107); Estimated Glomerular Filt Rate 103 ml/min (>60); GFR (African American) 125 ML/MIN (>60); Globulin 2.7 g/dL (1.3-3.2); Glucose 101 mg/dl (74-100); Potassium 4.3 mmoL/L (3.5-5.1); Sodium 137 mmol/L (136-145); Total Protein,Serum 6.9 g/dl (6.3-8.2)
== END ==
PROVIDERS: PCP Nurse Practitioner Family; Visit Provider Psychiatry & Neurology Sleep Medicine
DX: G35 Multiple sclerosis (principal)
CPT/HCPCS: 36415; 80053; 85025

== ENCOUNTER 2024-01-29 07:54 | Outpatient (CLI) | payer MEDICARE, OTHER, SELFPAY ==
--- NOTE | 2024-01-29 08:00 | CT_ITS ---
FINAL REPORT TECHNIQUE: Axial CT images of the abdomen were obtained with IV contrast only. Coronal and sagittal reformatted images were also obtained. This study was performed with techniques to keep radiation doses as low as reasonably achievable (ALARA). Individualized dose reduction techniques using automated exposure control or adjustment of mA and/or kV according to the patient's size were employed. CLINICAL HISTORY: LT UPPER QUAD ABD PAIN x 1 month COMPARISON: None FINDINGS: Mild lower lobe atelectasis is present. The liver has an unremarkable appearance, without evidence of mass. There is mild nonspecific gallbladder wall thickening without evidence of gallstones. There is no evidence of biliary ductal dilatation. The pancreas appears normal. The spleen size is within normal limits. There is no evidence of renal mass or hydronephrosis. There is no evidence of adenopathy. No abnormal fluid collection is seen. There is mild colon wall thickening, predominantly in the ascending colon, and mild colitis is not excluded. There is mild stranding in the small bowel mesentery, that may be reactive or represent mesenteric panniculitis. The appendix is partially visualized and unremarkable in appearance. IMPRESSION: Mild colon wall thickening, and mild colitis is not excluded. Mild stranding in the small bowel mesentery, that may be reactive or may represent mild mesenteric panniculitis. Reviewed, Interpreted and Dictated by Jordan An III, MD Transcribed by Faye David Authenticated and . [facility]
[2024-01-29] MEDS: SODIUM CHLORIDE 0.9% 10ML SYR (RAD ONLY) 10 ML IV (08:51)
[2024-01-29] MEDS: IOPAMIDOL-370 (76%);100ML BOTTLE 75 ML IV (08:51)
[2024-01-29] MEDS: BARIUM SULFATE(READI-CAT2);450ML BOTTLE 450 ML PO (08:51)
== END 2024-01-29 23:59 ==
PROVIDERS: PCP Nurse Practitioner Family; Visit Provider Nurse Practitioner Family
DX: R10.12 Left upper quadrant pain (principal); R10.9 Unspecified abdominal pain
CPT/HCPCS: 74160; Q9967

== ENCOUNTER 2024-06-10 19:42 | Emergency (ER) | payer MEDICARE, OTHER, SELFPAY ==
[2024-06-10 19:43] VITALS: BP 133/81; PULSE 72; RESP 20; TEMP 36.9; O2SAT 98; BMI 39.0
--- NOTE | 2024-06-10 20:24 | HMH.EDGENADL ---
Discharge Plan Prescriptions Prescriptions: No Action oxybutynin chloride 10 mg tablet extended release 24 hr 10 mg PO BID dimethyl fumarate [Tecfidera] 240 mg capsule,delayed release(DR/EC) 240 mg PO BID bisoprolol fumarate 5 mg tablet 5 mg PO DAILY Qty: 60 2RF Rx Instructions: TAKE 1/2 TABLET BY MOUTH EVERY DAY FOR BLOOD PRESSURE amlodipine 2.5 mg tablet See Rx Instructions .ROUTE .COMPLEX Qty: 30 10RF Dose Instruction: TAKE 1 TABLET BY MOUTH ONCE DAILY Rx Instructions: TAKE 1 TABLET BY MOUTH ONCE DAILY clopidogrel 75 mg tablet See Rx Instructions .ROUTE .COMPLEX Qty: 90 4RF Dose Instruction: TAKE 1 TABLET BY MOUTH ONCE DAILY Rx Instructions: TAKE 1 TABLET BY MOUTH ONCE DAILY atorvastatin 80 mg tablet See Rx Instructions .ROUTE .COMPLEX Qty: 90 4RF Dose Instruction: TAKE 1 TABLET BY MOUTH ONCE DAILY FOR CHOLESTEROL Rx Instructions: TAKE 1 TABLET BY MOUTH ONCE DAILY FOR CHOLESTEROL pantoprazole 40 mg tablet,delayed release (DR/EC) See Rx Instructions .ROUTE .COMPLEX Qty: 90 1RF Dose Instruction: TAKE 1 TABLET BY MOUTH ONCE DAILY Rx Instructions: TAKE 1 TABLET BY MOUTH ONCE DAILY Xarelto 20 mg tablet 20 mg PO DAILY Qty: 90 1RF Rx Instructions: TAKE ONE TABLET BY MOUTH EVERY DAY FOR BLOOD THINNER fluoxetine 10 mg capsule 40 mg PO QAM buspirone 5 mg tablet 5 mg PO BID famciclovir 500 mg tablet 500 mg PO BID clindamycin HCl 300 mg capsule 300 mg PO Q6H 10 Days Qty: 40 0RF mupirocin 2 % ointment 1 applic topical TID Qty: 22 0RF Rx Instructions: apply to lesion on outside of right ear as directed Referrals Follow up/Referrals: Chaya Skelton APRN [Primary Care Provider] - See instructions Discharge ED Provider: Deanna Bernal General Adult HPI General Stated complaint: AO 06/10 @1920, left hand pinky finger lac Time Seen by Provider: 06/10/24 20:24 Related Data Home Medications Medication Instructions Recorded Confirmed dimethyl fumarate 240 mg 240 mg PO BID MS 11/24/17 03/19/23 capsule,delayed release (Tecfidera) oxybutynin chloride 10 mg 10 mg PO BID bladder 11/24/17 03/19/23 tablet,extended release 24 hr fluoxetine 10 mg capsule 40 mg PO QAM mood 01/13/20 03/19/23 buspirone 5 mg tablet 5 mg PO BID . 03/19/23 03/19/23 famciclovir 500 mg tablet 500 mg PO BID . 03/19/23 03/19/23 Previous Rx's Medication Instructions Recorded clindamycin HCl 300 mg capsule 300 mg PO Q6H 10 days #40 caps 03/19/23 mupirocin 2 % topical ointment 1 applic topical TID #22 grams 03/19/23 bisoprolol fumarate 5 mg tablet 5 mg PO DAILY htn #60 tabs 04/07/23 amlodipine 2.5 mg tablet See Rx Instructions .Route 07/03/23 .COMPLEX #30 tabs atorvastatin 80 mg tablet See Rx Instructions .Route 09/07/23 .COMPLEX #90 tabs clopidogrel 75 mg tablet See Rx Instructions .Route 09/07/23 .COMPLEX #90 tabs pantoprazole 40 mg tablet,delayed See Rx Instructions .Route 12/28/23 release .COMPLEX #90 tabs rivaroxaban 20 mg tablet (Xarelto) 20 mg PO DAILY Blood thinner #90 02/12/24 tabs Allergies Allergy/AdvReac Type Severity Reaction Status Date / Time adhesive tape Allergy Unknown Unknown Verified 03/19/23 14:08 allergy reaction teriflunomide [From AUBAGIO] Allergy Unknown ELVATED Verified 03/19/23 14:08 LIVER ENZYMES [facility] Disclaimer: The information contained in this section may have been updated after the patient was seen, as this information can be updated by other users. Medical History CAD (coronary artery disease) delivery delivered COPD (chronic obstructive pulmonary disease) Dyspnea Edema HLD (hyperlipidemia) HTN (hypertension) PAD (peripheral artery disease) Surgical History H/O: hysterectomy History of cardiac cath History of esophagogastroduodenoscopy (EGD) History of total knee replacement Stented coronary artery Family History Other Diabetes Stroke Social History Smoking Status: Current every day smoker tobacco type: cigarettes packs per day: 1 second hand exposure: No alcohol intake: current alcohol intake frequency: a few times a month substance use type: denies use current occupational status: unemployed and disabled Travel in the last 8 weeks: None household members: spouse and family housing: house marital status: education level: high school current occupational exposures/hazards: No caffeine: Yes special marisela needs: No agree to transfusion: No do you feel safe at home: Yes victim of physical abuse: No victim of emotional abuse: No victim of sexual abuse: No would you like helpful sources: No ROS Obtained: Yes Systems reviewed as appropriate & no additional complaints except as documented Physical Exam General General appearance: alert and in no apparent distress Head Head exam: atraumatic and normal inspection Eye Eye exam: Present normal appearance, PERRL and EOMI ENT ENT exam: Present normal exam, normal oropharynx and mucous membranes moist Neck Neck exam: Present normal inspection, full ROM and trachea midline; Absent lymphadenopathy Chest Chest inspection: Present normal inspection and symmetric chest wall rise Respiratory Respiratory exam: Present normal lung sounds bilaterally; Absent accessory muscle use Cardiovascular Cardiovascular exam: Present regular rate, normal rhythm, normal heart sounds, +S1 and +S2 Abdominal Exam Abdominal exam: Present soft and normal bowel sounds; Absent tenderness, guarding or rebound Extremities Exam Extremities exam: Present normal inspection and full ROM Neurological Exam Neurological exam: Present alert, oriented X3 and CN II-XII intact Psychiatric Psychiatric exam: Present normal affect and normal mood Skin Skin exam: Present warm, dry and normal color Lymphatic Lymphatic Findings: no adenopathy Medical Decision Making Medical Decision Narrative: In summary patient is a [age, sex] who presents to the emergency department for evaluation of [complaint]. Patient is [hemodynamically stable/unstable] upon arrival, [febrile/afebrile]. [Unremarkable physical exam, nonfocal exam versus focal remarkable exam]. Differential diagnosis includes [DDx]. Initial workup will be conducted with [hematologic labs, imaging, respiratory swab, describe workup]. Initial interventions include [crystalloid bolus, medications, p.o. challenge, etc.] initial workup reviewed by me [hematologic labs are remarkable for... Imaging remarkable for... Urinalysis remarkable for]. Upon repeat evaluation [patient had acceptable resolution of symptoms, had persistent pain for which additional interventions were conducted (describe interventions), tolerated p.o., was ambulatory, etc.]. Given this [patient is appropriate for discharge at this time and will be discharged with a prescription for... The case was discussed with hospital medicine regarding management and they will admit the patient their service for continued evaluation at this time... Etc.] Places where you can increase complexity: I informally interpreted the patient's chest x-ray or CT read and is remarkable for... Documenting what the traffic warehouse supervisor shows with rate and rhythm Consideration of test but deferring. Ex: I considered chest x-ray on this patient however given that they have no oxygen requirement and are clear to auscultation all lung winslow will be deferred. Social determinants of health: Given that patient is undomiciled increases complexity. Given that patient has polysubstance abuse compounds all aspects of care
[2024-06-10] MEDS: LIDOCAINE 1% W/EPI 1:100,000 20ML VIAL 20 ML SQ (20:29)
--- NOTE | 2024-06-10 20:30 | PC.NURSE ---
Dr. Bernal at bedside to for laceration repair
[2024-06-10] MEDS: TET/DIPHTH/PERT-ADULT 0.5ML SYRINGE 0.5 ML IM (20:52)
--- NOTE | 2024-06-10 20:52 | ED_ITS ---
Discharge Plan Disposition Patient Disposition: Home, Self-Care Prescriptions Prescriptions: No Action oxybutynin chloride 10 mg tablet extended release 24 hr 10 mg PO BID dimethyl fumarate [Tecfidera] 240 mg capsule,delayed release(DR/EC) 240 mg PO BID bisoprolol fumarate 5 mg tablet 5 mg PO DAILY Qty: 60 2RF Rx Instructions: TAKE 1/2 TABLET BY MOUTH EVERY DAY FOR BLOOD PRESSURE amlodipine 2.5 mg tablet See Rx Instructions .ROUTE .COMPLEX Qty: 30 10RF Dose Instruction: TAKE 1 TABLET BY MOUTH ONCE DAILY Rx Instructions: TAKE 1 TABLET BY MOUTH ONCE DAILY clopidogrel 75 mg tablet See Rx Instructions .ROUTE .COMPLEX Qty: 90 4RF Dose Instruction: TAKE 1 TABLET BY MOUTH ONCE DAILY Rx Instructions: TAKE 1 TABLET BY MOUTH ONCE DAILY atorvastatin 80 mg tablet See Rx Instructions .ROUTE .COMPLEX Qty: 90 4RF Dose Instruction: TAKE 1 TABLET BY MOUTH ONCE DAILY FOR CHOLESTEROL Rx Instructions: TAKE 1 TABLET BY MOUTH ONCE DAILY FOR CHOLESTEROL pantoprazole 40 mg tablet,delayed release (DR/EC) See Rx Instructions .ROUTE .COMPLEX Qty: 90 1RF Dose Instruction: TAKE 1 TABLET BY MOUTH ONCE DAILY Rx Instructions: TAKE 1 TABLET BY MOUTH ONCE DAILY Xarelto 20 mg tablet 20 mg PO DAILY Qty: 90 1RF Rx Instructions: TAKE ONE TABLET BY MOUTH EVERY DAY FOR BLOOD THINNER fluoxetine 10 mg capsule 40 mg PO QAM buspirone 5 mg tablet 5 mg PO BID famciclovir 500 mg tablet 500 mg PO BID clindamycin HCl 300 mg capsule 300 mg PO Q6H 10 Days Qty: 40 0RF mupirocin 2 % ointment 1 applic topical TID Qty: 22 0RF Rx Instructions: apply to lesion on outside of right ear as directed Referrals Follow up/Referrals: Chaya Skelton APRN [Primary Care Provider] - See instructions Activity Restrictions/Add. Instructions Additional Instructions/Restrictions: Please have your sutures removed in 7 to 10 days return with any spreading redness or pus, the wounds. Clinical Impressions Clinical Impression: Finger laceration Instructions Patient Instructions: DI for Laceration Repair Discharge ED Provider: Deanna Bernal General Adult HPI General Chief complaint: Wound/Laceration Stated complaint: AO 06/10 @1920, left hand pinky finger lac Time Seen by Provider: 06/10/24 20:24 Mode of Arrival: Ambulatory Limitations: No Limitations Description of Symptoms (Recalled from ER Triage Doc. by RN): Pt ambulatory to ED with laceration to left pinky finger. Pt cut finger with kitchen knife while cooking dinner. Pt is unsure of when her last tetanus shot was. History of Present Illness HPI narrative: Patient is a 59-year-old female presenting today with a laceration to the volar aspect of her left finger. She is on Xarelto and Plavix for underlying cardiopulmonary pathology in the past. She had a difficult time controlling the bleeding has normal range of motion just a laceration with significant bleeding. No loss of sensation. No injuries elsewhere. This occurred while she was trying to prepare food with a very sharp knife that she had just sharpened. Related Data Home Medications Medication Instructions Recorded Confirmed dimethyl fumarate 240 mg 240 mg PO BID MS 11/24/17 03/19/23 capsule,delayed release (Tecfidera) oxybutynin chloride 10 mg 10 mg PO BID bladder 11/24/17 03/19/23 tablet,extended release 24 hr fluoxetine 10 mg capsule 40 mg PO QAM mood 01/13/20 03/19/23 buspirone 5 mg tablet 5 mg PO BID . 03/19/23 03/19/23 famciclovir 500 mg tablet 500 mg PO BID . 03/19/23 03/19/23 Previous Rx's Medication Instructions Recorded clindamycin HCl 300 mg capsule 300 mg PO Q6H 10 days #40 caps 03/19/23 mupirocin 2 % topical ointment 1 applic topical TID #22 grams 03/19/23 bisoprolol fumarate 5 mg tablet 5 mg PO DAILY htn #60 tabs 04/07/23 amlodipine 2.5 mg tablet See Rx Instructions .Route 07/03/23 .COMPLEX #30 tabs atorvastatin 80 mg tablet See Rx Instructions .Route 09/07/23 .COMPLEX #90 tabs clopidogrel 75 mg tablet See Rx Instructions .Route 09/07/23 .COMPLEX #90 tabs pantoprazole 40 mg tablet,delayed See Rx Instructions .Route 12/28/23 release .COMPLEX #90 tabs rivaroxaban 20 mg tablet (Xarelto) 20 mg PO DAILY Blood thinner #90 02/12/24 tabs Allergies Allergy/AdvReac Type Severity Reaction Status Date / Time adhesive tape Allergy Unknown Unknown Verified 03/19/23 14:08 allergy reaction teriflunomide [From AUBAGIO] Allergy Unknown ELVATED Verified 03/19/23 14:08 [facility] Disclaimer: The information contained in this section may have been updated after the patient was seen, as this information can be updated by other users. Medical History CAD (coronary artery disease) delivery delivered COPD (chronic obstructive pulmonary disease) Dyspnea Edema HLD (hyperlipidemia) HTN (hypertension) PAD (peripheral artery disease) Surgical History H/O: hysterectomy History of cardiac cath History of esophagogastroduodenoscopy (EGD) History of total knee replacement Stented coronary artery Family History Other Diabetes Stroke Social History Smoking Status: Current every day smoker tobacco type: cigarettes packs per day: 1 second hand exposure: No alcohol intake: current alcohol intake frequency: a few times a month substance use type: denies use current occupational status: unemployed and disabled Travel in the last 8 weeks: None household members: spouse and family housing: house marital status: education level: high school current occupational exposures/hazards: No caffeine: Yes special marisela needs: No agree to transfusion: No do you feel safe at home: Yes victim of physical abuse: No victim of emotional abuse: No victim of sexual abuse: No would you like helpful sources: No ROS Obtained: Yes All systems reviewed & no additional complaints except as documented Physical Exam General General appearance: alert and in no apparent distress Respiratory Respiratory exam: Present normal lung sounds bilaterally Cardiovascular Cardiovascular exam: Present regular rate Extremities Exam Extremities exam: Present other (2 cm horizontally oriented laceration to the proximal phalanx on the volar aspect of the left hand actively bleeding she has normal FDS and FDP flexor extension normal neurovascular exam as well) Neurological Exam Neurological exam: Present alert and oriented X3 Medical Decision Making Nakul Inquiry Pt receiving controlled substance: No Vital Signs: 06/10/24 19:43 Temperature 98.4 F Temperature Source Oral Pulse Rate [Right Radial] 72 Respiratory Rate 20 Blood Pressure [Right Arm] 133/81 Blood Pressure Mean [Right Arm] 98 Blood Pressure Source [Right Arm] Automatic Cuff Blood Pressure Position [Right Arm] Sitting 02 Sat by Pulse Oximetry 98 Oxygen Delivery Method Room Air Orders (Tests/Meds): ED MEDICATIONS Generic Name Dose Route Start Last Admin Trade Name Freq PRN Reason Stop Dose Admin Tetanus/Reduced Diphtheria/Acell Pertussis 0.5 ml 06/10/24 20:48 Tet/Diphth/Pert-Adult 0.5ml Syringe IM 06/10/24 20:49 .ONCE ONE Discontinued Medications Generic Name Dose Route Start Last Admin Trade Name Freq PRN Reason Stop Dose Admin Lidocaine/Epinephrine 20 ml 06/10/24 20:28 06/10/24 20:29 Lidocaine 1% W/Epi 1:100,000 20ml Vial SQ 06/10/24 20:29 20 ml ONCE ONE Administration Medical Decision Narrative: 59-year-old with above history laceration was repaired with adequate hemostasis. She is neurovascular intact and has no evidence of any flexor tendon dysfunction. Return precautions emphasized was discharged in stable condition please see procedure note. Procedures Laceration Laceration 1: Site: hand Side (If applicable): left Size (cm): 2 Description: linear Depth: simple, single layer Local Anesthetic: lidocaine 1% and with epi (Digital block) Pre-repair: wound explored and irrigated extensively Skin layer closed with: nylon Size (cm): 4-0 Number of sutures: 5 Technique: simple, interrupted Critical Care Critical Care Time Critical Care Time: No
[2024-06-10 21:04] VITALS: BP 133/81; PULSE 71; RESP 18; TEMP 36.8; O2SAT 97
[2024-06-10] MEDS: NEOSPORIN OINTMENT 0.9GM UDP 1 EACH TP (21:04)
== END 2024-06-10 21:05 | disposition home or self-care (01) ==
PROVIDERS: Emergency Provider Student in an Organized Health Care Education/Training Program; PCP Nurse Practitioner Family
DX: S61.412A Laceration without foreign body of left hand, initial encounter (principal); W26.0XXA Contact with knife, initial encounter; Z23 Encounter for immunization; Z86.79 Personal history of other diseases of the circulatory system; Z79.01 Long term (current) use of anticoagulants
CPT/HCPCS: 12001; 90471; 90715; 99283

== ENCOUNTER 2024-07-09 08:51 | Outpatient (CLI) | payer MEDICARE, OTHER, SELFPAY ==
--- NOTE | 2024-07-09 08:56 | US_ITS ---
FINAL REPORT TECHNIQUE: Ultrasound images of the abdomen were obtained. CLINICAL HISTORY: FOCUSED REGION ABD WALL LUQ/ LUQ PAIN COMPARISON: None FINDINGS: ABDOMINAL ULTRASOUND COMPLETE: There is mild fatty infiltration of the liver. A tiny amount of sludge is noted in the gallbladder. The gallbladder is otherwise normal. The common duct is normal. The right kidney measures 10.6 cm in length and is normal in echogenicity without hydronephrosis. The left kidney measures 10.0 cm in length without hydronephrosis. There is a 1.1 cm cyst noted in the left kidney. The spleen is unremarkable. The pancreas is partially obscured by overlying bowel gas. The visualized portions of the aorta and the IVC are normal. The vena cava is unremarkable. IMPRESSION: Left renal cyst. Reviewed, Interpreted and Dictated by Anmol Randall MD Transcribed by Steffanie Lucio Authenticated and [facility]
== END 2024-07-09 23:59 | disposition home or self-care (01) ==
LOC: RAD 08:52
PROVIDERS: PCP Nurse Practitioner Family; Visit Provider Nurse Practitioner Family
DX: R10.12 Left upper quadrant pain (principal)
CPT/HCPCS: 76700

== ENCOUNTER 2025-07-02 13:05 | Day surgery (SDC) | payer MEDICARE, OTHER, SELFPAY ==
--- NOTE | 2025-07-01 14:23 | EXP.HP ---
History of Present Illness *Admission Date: 07/02/25 *History of present illness: Mrs. Hardy is a 60-year-old female who is here for diagnostic colonoscopy secondary to left upper quadrant abdominal pain, gassiness and incomplete defecation. The examination is deemed medically necessary for diagnostic colonoscopy. The patient has been seen, interviewed and examined prior to the procedure by both myself and the anesthesia provider. [facility] Disclaimer: The information contained in this section may have been updated after the patient was seen, as this information can be updated by other users. Medical History delivery delivered PAD (peripheral artery disease) CAD (coronary artery disease) COPD (chronic obstructive pulmonary disease) HLD (hyperlipidemia) HTN (hypertension) Edema Dyspnea Surgical History History of esophagogastroduodenoscopy (EGD) History of cardiac cath History of total knee replacement H/O: hysterectomy Stented coronary artery Family History Other Diabetes Stroke Social History Smoking Status: Former smoker tobacco type: cigarettes packs per day: 1 pack-years: 35 smoking status start date: 04/16/2025 second hand exposure: No alcohol intake: current alcohol intake frequency: a few times a month substance use type: denies use current occupational status: unemployed and disabled Travel in the last 8 weeks?: None household members: spouse and family housing: house marital status: education level: high school current occupational exposures/hazards: No caffeine: No special marisela needs: No agree to transfusion: No do you feel safe at home: Yes victim of physical abuse: No victim of emotional abuse: No victim of sexual abuse: No would you like helpful sources: No Have you lived/traveled outside [place] in past 30 days?: No Contact w/someone who lives/traveled outside US past 30 days?: No Exposure to someone with infectious disease in past 14 days?: No Do you have a fever (greater than 100.4 F or 38 C)?: No Have you tested positive for COVID-19?: No Exposed to someone with COVID-19 in past 14 days?: No Do you have a sore throat?: No Do you have a cough?: No Do you have any weakness?: No Do you have any diarrhea?: No Are you experiencing any unusual bleeding?: No Do you have any muscle aches/pain?: No Do you have any abdominal pain?: No Are you experiencing loss of taste or smell?: No Other Medical History Have you received the Flu Vaccine for this season: No Have you received the Pneumonia Vaccine: No Review of Systems Review of Systems Review of systems (narrative): Negative *Cardiovascular Comments: Negative *Gastrointestinal Comments: Negative *Genitourinary Comments: Negative *Musculoskeletal Comments: Negative *Neurologic Comments: Negative Meds Home Medications and Allergies Home Medications ?Medication ?Instructions ?Recorded ?Confirmed ?Type oxybutynin chloride 10 mg 10 mg PO BID bladder 11/24/17 07/02/25 History tablet,extended release 24 hr fluoxetine 10 mg capsule 40 mg PO QAM mood 01/13/20 07/02/25 History buspirone 5 mg tablet 5 mg PO BID . 03/19/23 07/02/25 History famciclovir 500 mg tablet 500 mg PO BID . 03/19/23 07/02/25 History rivaroxaban 20 mg tablet (Xarelto) 20 mg PO DAILY Blood thinner #90 11/04/24 07/02/25 Rx tabs hydrochlorothiazide 12.5 mg tablet 12.5 mg PO DAILY 04/29/25 07/02/25 History ofatumumab 20 mg/0.4 mL 20 mg SQ QMONTH 04/29/25 07/02/25 History subcutaneous pen injector (Kesimpta Pen) ondansetron 4 mg disintegrating 4 mg PO Q6H #12 tabs 04/29/25 07/02/25 Rx tablet atorvastatin 80 mg tablet 80 mg PO DAILY 07/01/25 07/02/25 History semaglutide (weight loss) 0.5 0.5 mg SQ WEEKLY 07/01/25 07/02/25 History mg/0.5 mL subcutaneous pen injector (Wegovy) clopidogrel 75 mg tablet 75 mg PO DAILY 07/02/25 07/02/25 History pantoprazole 40 mg tablet,delayed 40 mg PO DAILY 07/02/25 07/02/25 History release New Prescriptions to Start Prescriptions: Allergies Allergy/AdvReac Type Severity Reaction Status Date / Time adhesive tape Allergy Unknown Unknown Verified 07/01/25 13:32 allergy reaction teriflunomide (From AUBAGIO) Allergy Unknown ELVATED Verified 07/01/25 13:32 LIVER ENZYMES Exam *Routine HEENT Exam Head: Present normocephalic Eye: Present EOMI and PERRL ENT: Present mucous membranes moist *Routine Neck Exam Neck: Present supple *Routine Respiratory Exam Respiratory: Present CTA bilaterally *Routine Cardiovascular Exam Cardiovascular: Present RRR *Routine Abdominal Exam Abdominal: Present soft and normoactive bowel sounds; Absent tenderness *Routine Rectal Exam Rectal:: deferred *Routine Genitalia Exam Genitalia:: deferred *Routine Extremities Exam Extremities: Absent cyanosis, clubbing or edema *Routine Skin Exam Skin: Present warm; Absent rash *Routine Neurological Exam Neurological: Present alert and oriented X3 Assessment and Plan *Assessment and plan (1) Incomplete defecation: Status: Acute Category: Medical Code(s): R15.0 - Incomplete defecation (2) Flatulence: Status: Acute Category: Medical Code(s): R14.3 - Flatulence (3) Belching: Status: Acute Category: Medical Code(s): R14.2 - Eructation (4) Left upper quadrant pain: Status: Chronic Category: Medical Code(s): R10.12 - Left upper quadrant pain (5) Bloating: Status: Acute Category: Medical Code(s): R14.0 - Abdominal distension (gaseous) Plan A/P: 1. Left upper quadrant abdominal pain with bloating, gassiness, belching and incomplete defecation is the preprocedural diagnosis. The patient will be anesthetized/sedated using MAC sedation. The patient has been seen and examined. Cardiac and lung assessment prior to the examination is stable. Proceed with planned diagnostic colonoscopy.
[2025-07-02 13:32] VITALS: BMI 33.3
[2025-07-02] MEDS: LACTATED RINGERS 1000ML 1,000 ML 50 ML IV (13:32)
[2025-07-02 13:33] VITALS: BP 117/51; PULSE 84; RESP 18; TEMP 36.6; O2SAT 94
--- NOTE | 2025-07-02 13:57 | HMH.PROCNOTE ---
[facility] Procedure Note Date: 07/02/25 Time: 14:22 Procedure Note:: Colonoscopy Procedure Report: Colonoscopy with cold snare polypectomy Endoscopist: David Munoz II, MD Referring physician: MARY Russell Date of Procedure: July 02, 2025 Equipment: Olympus [id number] adult colonoscope Sedation: MAC sedation Indication: Mrs. Hardy is a 60-year-old female with left upper quadrant/left flank pain for more than a year. She does notices more when she lies on her left side. She did have a CAT scan that showed some possible right sided colitis. Her ultrasound was normal. She does have a daily bowel movement but does report incomplete defecation/incomplete bowel evacuation. She does have a lot of bloating, gassiness, belching and heartburn. She reports no rectal bleeding, weight loss or family history of colon cancer. She had an attempted colonoscopy with me in 2017 but did not prep well. Colonoscopy is performed for diagnostic purposes. Procedure: Prior to the procedure, a history and physical exam was performed, and patient's medications and allergies were reviewed. The risks, benefits and alternatives of the sedation and procedure were discussed with the patient. All questions were answered and informed consent was obtained. The patient was brought to the procedure room. Patient identification and proposed procedure were verified by the physician and the nurse. The patient was placed in a left lateral decubitus position and the scope was passed under direct vision. Throughout the procedure, the patient's blood pressure, pulse, and oxygen saturations were monitored continuously. The colonoscopy was accomplished without difficulty. The patient tolerated the procedure well. Findings: On digital rectal examination there was normal rectal tone. There were no external hemorrhoids. There was some internal hemorrhoidal prolapse. There was an anterior rectocele. The colonoscope was introduced through the anal canal to the rectum and advanced to the cecum. The ileocecal valve and appendiceal orifice were identified. The scope was advanced a short distance into the ileum which appeared grossly normal. The scope was then withdrawn into the colon. There were 5 colon polyps (ascending x 1 (8 mm polyp with mucus cap), descending x 2 (5 and 6 mm) and sigmoid x 2 (4 and 6 mm)). These were all removed via cold snare polypectomy. The remaining cecum, ascending and transverse colon and mucosa were grossly normal. There were scattered diverticuli throughout the descending and sigmoid colon (LEFT colon). The rectum itself was normal. Upon retroflexion within the rectum there were grade 2 internal hemorrhoids. The preparation was excellent throughout with Sterling Preparation Score of 9. The cecal time was 14 minutes. Impression: 1. Colonic polyps x 5 2. Left-sided diverticulosis 3. Anterior rectocele 4. Grade 2 internal hemorrhoids Plan: I will follow-up the polyp histology and recommend repeat surveillance colonoscopy again in 3 years if the polyps are all adenomatous. I am going to recommend a fiber bowel regimen (combined MiraLAX plus Citrucel) on a regular daily basis. I would also consider treatment of her splenic flexure syndrome/functional abdominal pain with neuromodulation therapy.
--- NOTE | 2025-07-02 14:02 | EXP.ANES.CKL ---
[facility] Disclaimer: The information contained in this section may have been updated after the patient was seen, as this information can be updated by other users. Medical History delivery delivered PAD (peripheral artery disease) CAD (coronary artery disease) COPD (chronic obstructive pulmonary disease) HLD (hyperlipidemia) HTN (hypertension) Edema Dyspnea Surgical History History of esophagogastroduodenoscopy (EGD) History of cardiac cath History of total knee replacement H/O: hysterectomy Stented coronary artery Family History Other Diabetes Stroke Social History Smoking Status: Former smoker tobacco type: cigarettes packs per day: 1 pack-years: 35 smoking status start date: 04/16/2025 second hand exposure: No alcohol intake: current alcohol intake frequency: a few times a month substance use type: denies use current occupational status: unemployed and disabled Travel in the last 8 weeks?: None household members: spouse and family housing: house marital status: education level: high school current occupational exposures/hazards: No caffeine: No special marisela needs: No agree to transfusion: No do you feel safe at home: Yes victim of physical abuse: No victim of emotional abuse: No victim of sexual abuse: No would you like helpful sources: No Have you lived/traveled outside [place] in past 30 days?: No Contact w/someone who lives/traveled outside [place] past 30 days?: No Exposure to someone with infectious disease in past 14 days?: No Do you have a fever (greater than 100.4 F or 38 C)?: No Have you tested positive for COVID-19?: No Exposed to someone with COVID-19 in past 14 days?: No Do you have a sore throat?: No Do you have a cough?: No Do you have any weakness?: No Do you have any diarrhea?: No Are you experiencing any unusual bleeding?: No Do you have any muscle aches/pain?: No Do you have any abdominal pain?: No Are you experiencing loss of taste or smell?: No [facility] Anesthesia Checklist Patient Identification Patient Identification: Arm Band Structural Data Admitted From: Home Planned Operative Procedure/s: Colonoscopy Consent for Planned Operative Procedure(s) Verified: Yes Verified Documents: Surgical Consent and History and Physical NPO Status Verified Time NPO: 00:00 Additional verifications Anesthesia Reactions: No Airway Assessment Mallampati Score:: Class II C-Spine Mobility Assessed: Yes TMJ Mobility Assessed: Yes Dentition: Dentures-good fit Neurological Assessment Level of Consciousness: Awake, Alert and Appropriate Anesthesia Plan Anesthesia Risk discussed: Yes Anesthesia Plan: Verified ASA Class: III Anesthesia Type: MAC
[2025-07-02 14:23] VITALS: BP 119/49; PULSE 79; RESP 18; TEMP 36.3; O2SAT 92
[2025-07-02 14:33] VITALS: BP 136/57; PULSE 79; RESP 18; O2SAT 94
[2025-07-02 14:43] VITALS: BP 102/75; PULSE 72; RESP 18; O2SAT 95
[2025-07-02 14:52] VITALS: BP 103/76; PULSE 74; RESP 18; O2SAT 95
== END 2025-07-02 15:09 | disposition home or self-care (01) ==
PROVIDERS: PCP Nurse Practitioner Family; Visit Provider Internal Medicine Gastroenterology
PROC: 0DJD8ZZ Inspection of Lower Intestinal Tract, Via Natural or Artificial Opening Endoscopic (ICD-10-PCS; CPT 45378; principal; 2025-07-02 14:00)
DX: D12.5 Benign neoplasm of sigmoid colon (principal); D12.2 Benign neoplasm of ascending colon; D12.4 Benign neoplasm of descending colon; K63.5 Polyp of colon; K57.30 Diverticulosis of large intestine without perforation or abscess without bleeding; N81.6 Rectocele; K64.1 Second degree hemorrhoids; I25.10 Atherosclerotic heart disease of native coronary artery without angina pectoris; J44.9 Chronic obstructive pulmonary disease, unspecified; E78.5 Hyperlipidemia, unspecified; I10 Essential (primary) hypertension; I73.9 Peripheral vascular disease, unspecified; Z87.891 Personal history of nicotine dependence; Z88.8 Allergy status to other drugs, medicaments and biological substances; Z79.899 Other long term (current) drug therapy; Z79.01 Long term (current) use of anticoagulants
CPT/HCPCS: 45385; 88305; J2003; J2704; J7120